=== PATIENT | male | born 1990 | race Caucasian/White ===

== ENCOUNTER 2016-10-30 13:49 | Inpatient (IN) | payer OTHER ==
[~2016-10-30] VITALS: Ht 180.3 cm; Wt 68.0 kg
[2016-10-30 13:53] VITALS: BP 166/95; PULSE 80; RESP 20; O2SAT 100
--- NOTE | 2016-10-30 14:03 | PD ---
Physical Exam Date Seen by Provider: Oct 30, 2016 Time Seen by Provider: 14:08 Data Data Last Documented VS Vital Signs Date Time Temp Pulse Resp B/P Pulse Ox O2 Delivery O2 Flow Rate FiO2 10/30/16 13:53 80 20 166/95 100 Room Air MDM Supervised Visit with EDER: No Narrative Course 26 YO M with complaint of worsening frontal headache, radiating down neck x 1 day. + photophobia, diminished hearing. Dx'd "blood clot in brain in [place] last week." ON WARFARIN. Vitals reviewed. Awaiting bed placement. Kathy Griffith Oct 30, 2016 14:03
--- NOTE | 2016-10-30 14:23 | PD ---
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 Patient was initially seen and evaluated at [facility]. He was visited by neurology via telemedicine and started on Coumadin. Patient states since discharge he has had a frontal pressure/headache but it has become significantly worse wrapping around the right side. Rates the pain an 8 out of 10 with significant photophobia. Denies any fever or chills. He has been nauseous with an episode of vomiting. Denies any focal deficits or weakness. States that he feels as though his gait starts off unsteady but he is able to maintain a steady gait following initiation of walking. Has been taking doxycycline as prescribed from [facility]. Denies any new injury. Denies any other symptoms at this time. PFSH Past Medical History Hx Anticoagulant Therapy: Yes (Warfarin) Cardiovascular Problems: No Chemotherapy: No Cerebrovascular Accident: No Diabetes: No Respiratory: No Social History Tobacco Use: No Allergies-Medications (Allergen,Severity, Reaction): Coded Allergies: Ultram (Verified Allergy, Unknown, 10/30/16) Review of Systems Except as stated in HPI: all other systems reviewed are Neg Physical Exam Narrative GENERAL: Well-nourished male patient, sitting in the dark with lights off and sunglasses on, in no acute distress. SKIN: Focused skin assessment warm/dry. HEAD: Atraumatic. Normocephalic. EYES: Pupils equal and round. No scleral icterus. No injection or drainage. EOMI. PERRL ENT: No nasal bleeding or discharge. Mucous membranes pink and moist. NECK: Trachea midline. No JVD. CARDIOVASCULAR: Regular rate and rhythm. No murmur appreciated. RESPIRATORY: No accessory muscle use. Clear to auscultation. Breath sounds equal bilaterally. GASTROINTESTINAL: Abdomen soft, non-tender, nondistended. Hepatic and splenic margins not palpable. MUSCULOSKELETAL: No obvious deformities. No clubbing. No cyanosis. No edema. NEUROLOGICAL: Awake and alert. No obvious cranial nerve deficits. Motor grossly within normal limits. Normal speech. PSYCHIATRIC: Appropriate mood and affect; insight and judgment normal. Data Data Last Documented VS Vital Signs Date Time Temp Pulse Resp B/P Pulse Ox O2 Delivery O2 Flow Rate FiO2 10/30/16 18:00 84 16 142/79 98 Room Air Orders Iv Access Insert/Monitor (10/30/16 14:23) Complete Blood Count With Diff (10/30/16 14:23) Comprehensive Metabolic Panel (10/30/16 14:23) Coag Profile (10/30/16 14:23) Sodium Chlor 0.9% 1000 Ml Inj (Ns 1000 M (10/30/16 14:30) Diphenhydramine Inj (Benadryl Inj) (10/30/16 14:30) Dexamethasone Inj (Decadron Inj) (10/30/16 14:30) Ct Brain W/O Iv Contrast(Rout) (10/30/16 ) Cta Brain W Iv Contrast W 3d (10/30/16 ) Cta Neck W Iv Contrast W 3d (10/30/16 ) Iohexol 350 Inj (Omnipaque 350 Inj) (10/30/16 16:15) Sumatriptan Inj (Imitrex Inj) (10/30/16 17:45) Morphine Inj (Morphine Inj) (10/30/16 18:00) Enoxaparin Inj (Lovenox Inj) (10/30/16 18:00) Diphenhydramine Inj (Benadryl Inj) (10/30/16 19:45) Admit Order (Ed Use Only) (10/30/16 20:06) Labs Laboratory Tests Test 10/30/16 14:44 White Blood Count 15.7 TH/MM3 Red Blood Count 4.93 MIL/MM3 Hemoglobin 14.5 GM/DL Hematocrit 42.0 % Mean Corpuscular Volume 85.2 FL Mean Corpuscular Hemoglobin 29.4 PG Mean Corpuscular Hemoglobin 34.5 % Concent Red Cell Distribution Width 13.1 % Platelet Count 323 TH/MM3 Mean Platelet Volume 8.7 FL Neutrophils (%) (Auto) 78.2 % Lymphocytes (%) (Auto) 15.9 % Monocytes (%) (Auto) 5.6 % Eosinophils (%) (Auto) 0.1 % Basophils (%) (Auto) 0.2 % Neutrophils # (Auto) 12.3 TH/MM3 Lymphocytes # (Auto) 2.5 TH/MM3 Monocytes # (Auto) 0.9 TH/MM3 Eosinophils # (Auto) 0.0 TH/MM3 Basophils # (Auto) 0.0 TH/MM3 CBC Comment DIFF FINAL Differential Comment Prothrombin Time 14.4 SEC Prothromb Time International 1.3 RATIO Ratio Activated Partial 27.7 SEC Thromboplast Time Sodium Level 137 MEQ/L Potassium Level 4.1 MEQ/L Chloride Level 101 MEQ/L Carbon Dioxide Level 29.6 MEQ/L Anion Gap 6 MEQ/L Blood Urea Nitrogen 16 MG/DL Creatinine 0.62 MG/DL Estimat Glomerular Filtration 154 ML/MIN Rate Random Glucose 108 MG/DL Calcium Level 8.8 MG/DL Total Bilirubin 0.3 MG/DL Aspartate Amino Transf 63 U/L (AST/SGOT) Alanine Aminotransferase 183 U/L (ALT/SGPT) Alkaline Phosphatase 104 U/L Total Protein 7.0 GM/DL Albumin 3.6 GM/DL [facility] Medical Decision Making Medical Screen Exam Complete: Yes Emergency Medical Condition: Yes Medical Record Reviewed: Yes Differential Diagnosis Migraine headache versus status migrainosus versus venous sinus thrombosis versus intracranial hemorrhage Narrative Course 26-year-old male presents to the emergency department for evaluation of intractable headache, worsening and now banding around to the right side of his head following a diagnosis of dural venous sinus thrombosis. Patient appears without distress. Neuro exam is nonfocal. He does have significant photophobia. Records are obtained from [facility]. Patient was discharged on Coumadin with a therapeutic INR of 2.8. Laboratory Tests Test 10/30/16 14:44 White Blood Count 15.7 TH/MM3 Red Blood Count 4.93 MIL/MM3 Hemoglobin 14.5 GM/DL Hematocrit 42.0 % Mean Corpuscular Volume 85.2 FL Mean Corpuscular Hemoglobin 29.4 PG Mean Corpuscular Hemoglobin 34.5 % Concent Red Cell Distribution Width 13.1 % Platelet Count 323 TH/MM3 Mean Platelet Volume 8.7 FL Neutrophils (%) (Auto) 78.2 % Lymphocytes (%) (Auto) 15.9 % Monocytes (%) (Auto) 5.6 % Eosinophils (%) (Auto) 0.1 % Basophils (%) (Auto) 0.2 % Neutrophils # (Auto) 12.3 TH/MM3 Lymphocytes # (Auto) 2.5 TH/MM3 Monocytes # (Auto) 0.9 TH/MM3 Eosinophils # (Auto) 0.0 TH/MM3 Basophils # (Auto) 0.0 TH/MM3 CBC Comment DIFF FINAL Differential Comment Prothrombin Time 14.4 SEC Prothromb Time International 1.3 RATIO Ratio Activated Partial 27.7 SEC Thromboplast Time Sodium Level 137 MEQ/L Potassium Level 4.1 MEQ/L Chloride Level 101 MEQ/L Carbon Dioxide Level 29.6 MEQ/L Anion Gap 6 MEQ/L Blood Urea Nitrogen 16 MG/DL Creatinine 0.62 MG/DL Estimat Glomerular Filtration 154 ML/MIN Rate Random Glucose 108 MG/DL Calcium Level 8.8 MG/DL Total Bilirubin 0.3 MG/DL Aspartate Amino Transf 63 U/L (AST/SGOT) Alanine Aminotransferase 183 U/L (ALT/SGPT) Alkaline Phosphatase 104 U/L Total Protein 7.0 GM/DL Albumin 3.6 GM/DL Last Impressions Neck CTA 10/30/16 0000 Signed Impressions: Service Date/Time: Sunday, October 30, 2016 16:01 - CONCLUSION: Normal examination. Timoteo Smith Jr., MD Head CTA 10/30/16 0000 Signed Impressions: Service Date/Time: Sunday, October 30, 2016 16:01 - CONCLUSION: Normal examination. Timoteo Smith Jr., MD Head CT 10/30/16 0000 Signed Impressions: Service Date/Time: Sunday, October 30, 2016 16:01 - CONCLUSION: Negative noncontrast CT brain. Timoteo Boone MD I discussed the CTA findings with Dr. Boone who states that CT is typically do not extend all the way to the frontal or superior areas of the brain. He does note some patchiness along the straight sinus and visualizes the transverse sinus more on the left than the right. He is able to fully visualize the vein of Nguyễn. The patient continues to be in pain. His INR is subtherapeutic at 1.3. I discussed the patient on my taking physician agrees he should be admitted for pain control and intervention to reach a therapeutic INR. He is given 90 mg subcutaneous Lovenox. Plan is discussed with the patient and his significant other at bedside. They are in agreement with this plan of care. [address] Delgado. Patient be admitted to his service. Diagnosis Primary Impression: Intractable headache Qualified Code: R51 - Intractable headache, unspecified chronicity pattern, unspecified headache type Additional Impressions: Subtherapeutic anticoagulation Hx of cerebral venous sinus thrombosis Admitting Information Admitting Physician Requests: Admit Condition: Stable So Kearns Oct 30, 2016 14:23
[2016-10-30] MEDS ORDERED: diphenhydrAMINE HCL 50 MG/ML VIAL IV PUSH ONE ×2 (14:30→19:45)
[2016-10-30] MEDS ORDERED: SODIUM CHLOR 0.9% 1000 ML INJ 1,000 ML IV ONE (14:30)
[2016-10-30] MEDS ORDERED: DEXAMETHASONE SOD PHOS 4 MG/ML VIAL IV PUSH ONE (14:30)
[2016-10-30 15:02] LABS: AUTOMATED NEUTROPHIL # 12.3 TH/MM3 (1.8-7.7); BASOPHIL % 0.2 % (0.0-2.0); EOSINOPHIL % 0.1 % (0.0-4.0); HEMO FLAGS DIFF FINAL; LYMPH % 15.9 % (9.0-44.0); LYMPHOCYTE # 2.5 TH/MM3 (1.0-4.8); MEAN CELL VOLUME 85.2 FL (80.0-100.0); MEAN CORPUSCULAR HEMOGLOBIN 29.4 PG (27.0-34.0); MEAN CORPUSCULAR HGB CONC 34.5 % (32.0-36.0); MONO % 5.6 % (0.0-8.0); NEUT % 78.2 % (16.0-70.0); PLATELET COUNT 323 TH/MM3 (150-450); RED BLOOD COUNT 4.93 MIL/MM3 (4.50-5.90); RED CELL DISTRIBUTION WIDTH 13.1 % (11.6-17.2); WHITE BLOOD COUNT 15.7 TH/MM3 (4.0-11.0)
[2016-10-30 15:19] LABS: APTT (PATIENT) 27.7 SEC (24.3-30.1); INTERNATIONAL NORMALIZED RATIO 1.3 RATIO; PROTHROMBIN TIME - PATIENT 14.4 SEC (9.8-11.6)
[2016-10-30 15:31] LABS: ALKALINE PHOSPHATASE 104 U/L (45-117); TOTAL BILIRUBIN ADULT 0.3 MG/DL (0.2-1.0)
[2016-10-30 15:38] LABS: ALT (GPT) 183 U/L (12-78); ANION GAP 6 MEQ/L (5-15); AST (GOT) 63 U/L (15-37); BICARBONATE 29.6 MEQ/L (21.0-32.0); BLOOD UREA NITROGEN 16 MG/DL (7-18); CHLORIDE 101 MEQ/L (98-107); GLOMERULAR FILTRATION RATE 154 ML/MIN (>89); POTASSIUM 4.1 MEQ/L (3.5-5.1); SODIUM (NA) 137 MEQ/L (136-145)
[2016-10-30 16:00] VITALS: BP 104/56; PULSE 97; RESP 16; O2SAT 98
[2016-10-30] MEDS ORDERED: IOHEXOL 350 MG/ML 10 ML VIAL (for RAD DIAG) IV ONE (16:15)
--- NOTE | 2016-10-30 17:30 | RADRPT ---
EXAM DATE/TIME: 10/30/2016 16:01 [facility] COMPARISON: No previous studies available for comparison. INDICATIONS : Cephalgia. RADIATION DOSE: 56.35 CTDIvol (mGy) MEDICAL HISTORY : brain clot SURGICAL HISTORY : None. ENCOUNTER: Initial ACUITY: 1 week PAIN SCALE: 7/10 LOCATION: Bilateral cranial TECHNIQUE: Multiple contiguous axial images were obtained of the head. Using automated exposure control and adj ustment of the mA and/or kV according to patient size, radiation dose was kept as low as reasonably a chievable to obtain optimal diagnostic quality images. FINDINGS: CEREBRUM: The ventricles are normal for age. No evidence of midline shift, mass lesion, hemorrhage or acute in farction. No extra-axial fluid collections are seen. POSTERIOR FOSSA: The cerebellum and brainstem are intact. The 4th ventricle is midline. The cerebellopontine angle i s unremarkable. EXTRACRANIAL: The visualized portion of the orbits is intact. SKULL: The calvaria is intact. No evidence of skull fracture. CONCLUSION: Negative noncontrast CT brain. Timoteo Boone MD on October 30, 2016 at 17:28 Board Certified Radiologist. This report was verified electronically.
[2016-10-30] MEDS ORDERED: SUMAtriptan INJ 6 MG/0.5 ML VIAL SQ ONE (17:45)
[2016-10-30 18:00] VITALS: BP 142/79; PULSE 84; RESP 16; O2SAT 98
[2016-10-30] MEDS ORDERED: ENOXAPARIN SODIUM 100 MG/ML SYRINGE SQ ONE (18:00)
[2016-10-30] MEDS ORDERED: MORPHINE SULFATE 4 MG/ML INJ IV PUSH ONE (18:00)
--- NOTE | 2016-10-30 19:46 | RADRPT ---
EXAM DATE/TIME: 10/30/2016 16:01 [facility] COMPARISON: No previous studies available for comparison. INDICATIONS : Cephalgia. IV CONTRAST: 100 cc Omnipaque 350 (iohexol) IV ; Cumulative dose for multiple exams. RADIATION DOSE: 5.00 CTDIvol (mGy) MEDICAL HISTORY : Brain clot. SURGICAL HISTORY : None. ENCOUNTER: Initial ACUITY: 1 day PAIN SCALE: 7/10 LOCATION: Bilateral cranial TECHNIQUE: Volumetric scanning was performed using a multi-row detector CT scanner. The data was post processed with a variety of visualization algorithms including full volume maximum intensity projection, multi -planar sliding thin slab reformation, curved planar reformation, and surface rendering techniques. Using automated exposure control and adjustment of the mA and/or kV according to patient size, radiat ion dose was kept as low as reasonably achievable to obtain optimal diagnostic quality images. FINDINGS: There is excellent visualization of the major intracranial arteries out to the second-order branch ve ssels. Variant anatomy with persistent circulation on the left. There is no evidence for aneury sm, vessel truncation or stenosis, and no evidence for vascular malformation. CONCLUSION: Normal examination. Timoteo Smith Jr., MD on October 30, 2016 at 19:42 Board Certified Radiologist. This report was verified electronically.
--- NOTE | 2016-10-30 19:48 | RADRPT ---
EXAM DATE/TIME: 10/30/2016 16:01 [facility] COMPARISON: No previous studies available for comparison. INDICATIONS : Cephalgia. IV CONTRAST: 100 cc Omnipaque 350 (iohexol) IV ; Cumulative dose for multiple exams. RADIATION DOSE: 5.00 CTDIvol (mGy) ; Combined studies MEDICAL HISTORY : Brain clot. SURGICAL HISTORY : None. ENCOUNTER: Initial ACUITY: 1 week PAIN SCALE: 7/10 LOCATION: Bilateral neck Elevated flow velocities and ICA/CCA ratios have been found to correlate with increased degrees of vessel stenosis, calculated as percentage of diameter relative to a normal segment of distal ICA/CCA. TECHNIQUE: Volumetric scanning was performed using a multirow detector CT scanner. The data was post processed with a variety of visualization algorithms including full-volume maximum intensity projection, multip lanar sliding thin-slab reformation, curved-planar reformation, and surface-rendering techniques. Us ing automated exposure control and adjustment of the mA and/or kV according to patient size, radiatio n dose was kept as low as reasonably achievable to obtain optimal diagnostic quality images. FINDINGS: AORTIC ARCH: There is a three-vessel origin of the great vessels from the aorta. No evidence of ostial narrowing. RIGHT CAROTID: The common carotid artery is intact. The carotid bulb has a normal configuration without ulceration o r narrowing. The internal carotid artery lumen is smooth without stenosis. The external carotid zac ry is intact. LEFT CAROTID: The common carotid artery is intact. The carotid bulb has a normal configuration without ulceration or narrowing. The internal carotid artery lumen is smooth without stenosis. The external carotid ar rachelle is intact. VERTEBRALS: The vertebral arteries have a symmetric diameter. No stenotic lesions are seen. CONCLUSION: Normal examination. Timoteo Smith Jr., MD on October 30, 2016 at 19:44 Board Certified Radiologist. This report was verified electronically.
--- NOTE | 2016-10-30 20:59 | HHI.HP ---
HPI Service [facility] Primary Care Physician Non-Staff Admission Diagnosis intractable ULLOA, subtherapeutic INR,hx of dural venous thrombosis Chief Complaint: h/a Travel History International Travel<30 Days: No Contact w/Intl Traveler <30 Da: No Traveled to Known Affected Are: No History of Present Illness Pt is 26 yo male who presented to [facility] and admitted from 10/22 -10/26. He was suffering from severe headache and photophobia. Pt had ct brain w/o contrast 10/22 and finding concerning for dural venous sinus thrombosis of straight sinus,inferior sagital sinus,torcular,right transverse sinues and possibly post sup. sagittal sinus. also right frontal sinusitis. MRI w/wo brain 10/23 negative for cva but mentions dural venous sinus thrombosis, straight,sinus,vein of hermann,right transverse sinus,right sup sigmoid sinus. MRV brain w/wo 10/23 dural venous sinus thrombosis with essentially complete occlusion of the straight sinus, vein of hermann,right transverse sinus, right sup sigmoid sinus. The inferior aspect of the right sigmoid sinus as well as the sup aspect of the right internal jugular vein were patent. Hypercoag panel included antiphospholipid ab's, KYLIE,RF,Hep B,C, spep unremarkable. Pt was sent home with therapeutic levels of coumadin but stated he still had some pain and pressure. he was given doxycycline in case of sinusitis. He has had more h/a and pressure worse over right scalp. photophobia and nausea/vomiting mentioned. In ED he is subtherapeutic on coumadin. he also complained of double vision. Review of Systems Other ulloa n/v double vision photophobia Past Family Social History Past Medical History extensive dural venous sinus thrombosis as above hx c.diff colitis hx sz after "ultram" insomnia Reported Medications coumadin 4mg daily doxycycline prn ambien Allergies: Coded Allergies: Ultram (Verified Allergy, Unknown, 10/30/16) Family History father with pad Social History rare etoh/tob Physical Exam Vital Signs light sensitive sitting in dark neck supple heart reg lung cta abd s/nt ext no edema no carotid bruit Vital Signs Date Time Temp Pulse Resp B/P Pulse Ox O2 Delivery O2 Flow Rate FiO2 10/30/16 18:00 84 16 142/79 98 Room Air 10/30/16 16:00 97 16 104/56 98 Room Air 10/30/16 13:53 80 20 166/95 100 Room Air Laboratory Laboratory Tests Test 10/30/16 14:44 White Blood Count 15.7 Red Blood Count 4.93 Hemoglobin 14.5 Hematocrit 42.0 Mean Corpuscular Volume 85.2 Mean Corpuscular Hemoglobin 29.4 Mean Corpuscular Hemoglobin 34.5 Concent Red Cell Distribution Width 13.1 Platelet Count 323 Mean Platelet Volume 8.7 Neutrophils (%) (Auto) 78.2 Lymphocytes (%) (Auto) 15.9 Monocytes (%) (Auto) 5.6 Eosinophils (%) (Auto) 0.1 Basophils (%) (Auto) 0.2 Neutrophils # (Auto) 12.3 Lymphocytes # (Auto) 2.5 Monocytes # (Auto) 0.9 Eosinophils # (Auto) 0.0 Basophils # (Auto) 0.0 CBC Comment DIFF FINAL Differential Comment Prothrombin Time 14.4 Prothromb Time International 1.3 Ratio Activated Partial 27.7 Thromboplast Time Sodium Level 137 Potassium Level 4.1 Chloride Level 101 Carbon Dioxide Level 29.6 Anion Gap 6 Blood Urea Nitrogen 16 Creatinine 0.62 Estimat Glomerular Filtration 154 Rate Random Glucose 108 Calcium Level 8.8 Total Bilirubin 0.3 Aspartate Amino Transf 63 (AST/SGOT) Alanine Aminotransferase 183 (ALT/SGPT) Alkaline Phosphatase 104 Total Protein 7.0 Albumin 3.6 Result Diagram: 10/30/16 1444 10/30/16 1444 Assessment and Plan Problem List: (1) Hx of cerebral venous sinus thrombosis Status: Acute Plan: Pt is 26 yo male who presented to [facility] and admitted from 10/22-10/26. He was suffering from severe headache and photophobia. Pt had ct brain w/o contrast 10/22 and finding concerning for dural venous sinus thrombosis of straight sinus,inferior sagital sinus,torcular,right transverse sinues and possibly post sup. sagittal sinus. also right frontal sinusitis. MRI w/wo brain 10/23 negative for cva but mentions dural venous sinus thrombosis, straight,sinus,vein of hermann,right transverse sinus,right sup sigmoid sinus. MRV brain w/wo 10/23 dural venous sinus thrombosis with essentially complete occlusion of the straight sinus, vein of hermann,right transverse sinus, right sup sigmoid sinus. The inferior aspect of the right sigmoid sinus as well as the sup aspect of the right internal jugular vein were patent. Hypercoag panel included antiphospholipid ab's, KYLIE,RF,Hep B,C, spep, homocysteine, unremarkable. Pt was sent home with therapeutic levels of coumadin but stated he still had some pain and pressure. he was given doxycycline in case of sinusitis. He has had more h/a and pressure worse over right scalp. photophobia and nausea/vomiting mentioned. In ED he is subtherapeutic on coumadin. he also complained of double vision. continue lovenox as started. consult neurology for opinion pain control hard to order complete hypercoag panel while on anticoagulation. But he is very subtherapeutic on coumadin. MRV (2) Intractable headache Status: Acute Plan: see above (3) Subtherapeutic anticoagulation Status: Acute Plan: see above Physician Certification 2 Midnight Certification Type: Admission for Inpatient Services Order for Inpatient Services 3The services are ordered in accordance with Medicare regulations or non- Medicare payer requirements, as applicable. In the case of services not specified as inpatient-only, they are appropriately provided as inpatient services in accordance with the 2-midnight benchmark. Estimated LOS (days): 3 3 days is the estimated time the patient will need to remain in the hospital, assuming treatment plan goals are met and no additional complications. Problem Qualifiers (1) Intractable headache: Qualified Code: R51 - Intractable headache, unspecified chronicity pattern, unspecified headache type Wilmer Delgado MD Oct 30, 2016 20:59
[2016-10-30] MEDS ORDERED: HYDROmorphone HCL PF 1 MG/ML VIAL IV PUSH ONE (21:00)
[2016-10-30] MEDS ORDERED: ONDANSETRON HCL 4 MG/2 ML VIAL IV PUSH PRN (21:00)
[2016-10-30 21:05] VITALS: BP 138/68; PULSE 72; RESP 18; O2SAT 98
[2016-10-30] MEDS ORDERED: GADODIAMIDE PF 287 MG/ML 20 ML VIAL (for RAD MRI) IV ONE (21:58)
[2016-10-30 22:27] VITALS: BP 143/81; PULSE 94; RESP 18; TEMP 96.6; O2SAT 97
--- NOTE | 2016-10-30 22:43 | RADRPT ---
EXAM DATE/TIME: 10/30/2016 21:52 COMPARISON: No previous studies available for comparison. INDICATIONS : Cephalgia. CONTRAST: 20 cc Omniscan (gadodiamide) IV MEDICAL HISTORY : None. SURGICAL HISTORY : None. ENCOUNTER: Initial ACUITY: 1 week PAIN SCORE: 9/10 LOCATION: cranial FINDINGS: MRV was performed using post contrast scanning technique. Flow is seen throughout the sagittal sinus . There is a thin amount of flow seen in the straight sinus and vein of Nguyễn. There is asymmetric flow in the transverse sinus, greater on the left than on the right. Symmetric appearance to the sig moid sinus.. CONCLUSION: Diminished flow seen in the straight sinus, but some flow is discernible. Asymmetric flow in the sag ittal sinus, diminished on the right. Timoteo Boone MD on October 30, 2016 at 22:39 Board Certified Radiologist. This report was verified electronically.
[2016-10-30] MEDS: ACETAMINOPHEN/HYDROcodone 325 MG/10 MG TAB PO PRN (22:54)
[2016-10-30] MEDS: ZOLPIDEM TARTRATE 10 MG TAB PO PRN (22:57)
[2016-10-31] VITALS: BP 128/69; PULSE 99; RESP 18; TEMP 96.6; O2SAT 98
[2016-10-31 04:00] VITALS: BP 134/71; PULSE 56; RESP 18; TEMP 96.5; O2SAT 98
[2016-10-31] MEDS: ACETAMINOPHEN/HYDROcodone 325 MG/10 MG TAB PO PRN (05:17)
[2016-10-31] MEDS: ENOXAPARIN SODIUM 100 MG/ML SYRINGE SQ SCH ×2 (05:17→18:34)
[2016-10-31 08:00] LABS: AUTOMATED NEUTROPHIL # 13.3 TH/MM3 (1.8-7.7); BASOPHIL % 0.2 % (0.0-2.0); EOSINOPHIL % 0.1 % (0.0-4.0); HEMATOCRIT 43.4 % (39.0-51.0); HEMO FLAGS DIFF FINAL; LYMPH % 18.2 % (9.0-44.0); LYMPHOCYTE # 3.3 TH/MM3 (1.0-4.8); MEAN CORPUSCULAR HEMOGLOBIN 28.6 PG (27.0-34.0); MEAN CORPUSCULAR HGB CONC 33.7 % (32.0-36.0); MONO % 7.3 % (0.0-8.0); NEUT % 74.2 % (16.0-70.0); PLATELET COUNT 323 TH/MM3 (150-450); RED BLOOD COUNT 5.11 MIL/MM3 (4.50-5.90); RED CELL DISTRIBUTION WIDTH 12.8 % (11.6-17.2); WHITE BLOOD COUNT 17.9 TH/MM3 (4.0-11.0)
[2016-10-31 08:13] VITALS: BP 139/69; PULSE 74; RESP 18; TEMP 97.8; O2SAT 98
[2016-10-31 08:22] LABS: TOTAL BILIRUBIN ADULT 0.5 MG/DL (0.2-1.0)
[2016-10-31 08:33] LABS: BICARBONATE 27.4 MEQ/L (21.0-32.0); INDIRECT BILIRUBIN 0.4 MG/DL (0.0-0.8); POTASSIUM 4.2 MEQ/L (3.5-5.1)
[2016-10-31] MEDS: HYDROmorphone HCL PF 1 MG/ML VIAL IV PUSH PRN ×5 (09:12→21:47)
--- NOTE | 2016-10-31 10:07 | HHI.PR ---
Subjective Remarks still has h/a and some double visions but dilaudid helps more. Objective Vitals heart reg lung cta abd s/nt ext no edema Vital Signs Date Time Temp Pulse Resp B/P Pulse Ox O2 Delivery O2 Flow Rate FiO2 10/31/16 08:13 97.8 74 18 139/69 98 10/31/16 04:00 96.5 56 18 134/71 98 10/31/16 00:00 96.6 99 18 128/69 98 10/30/16 22:27 96.6 94 18 143/81 97 10/30/16 21:05 72 18 138/68 98 Room Air 10/30/16 18:00 84 16 142/79 98 Room Air 10/30/16 16:00 97 16 104/56 98 Room Air 10/30/16 13:53 80 20 166/95 100 Room Air Result Diagram: 10/31/16 0741 10/31/16 0741 A/P Problem List: (1) Hx of cerebral venous sinus thrombosis Status: Acute Plan: Pt is 26 yo male who presented to [facility] and admitted from 10/22-10/26. He was suffering from severe headache and photophobia. Pt had ct brain w/o contrast 10/22 and finding concerning for dural venous sinus thrombosis of straight sinus,inferior sagital sinus,torcular,right transverse sinues and possibly post sup. sagittal sinus. also right frontal sinusitis. MRI w/wo brain 10/23 negative for cva but mentions dural venous sinus thrombosis, straight,sinus,vein of hermann,right transverse sinus,right sup sigmoid sinus. MRV brain w/wo 10/23 dural venous sinus thrombosis with essentially complete occlusion of the straight sinus, vein of hermann,right transverse sinus, right sup sigmoid sinus. The inferior aspect of the right sigmoid sinus as well as the sup aspect of the right internal jugular vein were patent. Hypercoag panel included antiphospholipid ab's, KYLIE,RF,Hep B,C, spep, homocysteine, unremarkable. Pt was sent home with therapeutic levels of coumadin but stated he still had some pain and pressure. he was given doxycycline in case of sinusitis. He has had more h/a and pressure worse over right scalp. photophobia and nausea/vomiting mentioned. In ED he is subtherapeutic on coumadin. he also complained of double vision. 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 continue lovenox as started. I would call cp and see if he could get Eliquis at reasonable cost consult neurology for opinion. ?would ask neurology if diamox would be appropriate to start for ICH. unable to do LP with AC. I discussed it's use with our [employer] industrial education teacher and he said diamox would be safe...Also if sx's persist IR consult could be performed. pain control partial hypercoagulable w/up at [place] reviewed. more sent here but interpret cautiously as it some of it may be influenced by recent use of coumadin ...although levels were low on arrival recheck LFT..could be drug related.....repeat wbc could be steroid related. (2) Intractable headache Status: Acute Plan: see above (3) Subtherapeutic anticoagulation Status: Acute Plan: see above Problem Qualifiers (1) Intractable headache: Qualified Code: R51 - Intractable headache, unspecified chronicity pattern, unspecified headache type Wilmer Delgado MD Oct 31, 2016 10:07
[2016-10-31] MEDS: acetaZOLAMIDE 250 MG TAB PO SCH ×2 (10:54→21:46)
[2016-10-31 12:10] VITALS: BP 136/75; PULSE 77; RESP 18; TEMP 96.1; O2SAT 97
[2016-10-31 16:07] VITALS: BP 133/70; PULSE 72; RESP 19; TEMP 96.2; O2SAT 97
[2016-10-31 20:00] VITALS: BP 126/74; PULSE 68; RESP 18; TEMP 97.3; O2SAT 98
[2016-10-31] MEDS: ZOLPIDEM TARTRATE 10 MG TAB PO PRN (21:46)
[2016-11-01] VITALS: BP 124/72; PULSE 62; RESP 18; TEMP 97; O2SAT 98
[2016-11-01] MEDS: ACETAMINOPHEN/HYDROcodone 325 MG/10 MG TAB PO PRN ×2 (01:23→17:47)
[2016-11-01] MEDS: HYDROmorphone HCL PF 1 MG/ML VIAL IV PUSH PRN ×6 (01:28→23:56)
[2016-11-01 04:00] VITALS: BP 115/66; PULSE 68; RESP 18; TEMP 97; O2SAT 98
[2016-11-01] MEDS: ENOXAPARIN SODIUM 100 MG/ML SYRINGE SQ SCH ×2 (05:05→17:47)
--- NOTE | 2016-11-01 06:15 | MB ---
cc: SAUNDRA KOCH DATE OF CONSULTATION 10/31/2016 REASON FOR CONSULTATION Dural sinus thrombosis. HISTORY OF PRESENT ILLNESS Next Mr. West is a 26-year-old male who had presented to [facility] and was admitted because of headache and severe photophobia. The patient states that the headache was frontal; it is a new headache, sometime located on the right side but radiates to the back. It is occasionally associated with nausea, vomiting and dizziness "sometimes". The headache is usually exacerbated by head movement, described as, "excruciating ".The patient was admitted in the hospital and findings of the head CT scan were concerning for dural venous sinus thrombosis of the straight sinus, inferior sagittal and right transverse sinus and possibly posterior superior sagittal sinus. This was between 10/22-10/26/2016. MRI with and without contrast on 10/23 was negative for acute stroke but revealed dural venous sinus thrombosis in the straight sinus, vein of Nguyễn, right transverse sinus and right superior sigmoid sinus. MRV of the brain with and without contrast on revealed dural venous sinus thrombosis with essentially complete occlusion of the straight sinus, vein of Nguyễn, right transverse sinus, right superior sigmoid sinus. The inferior aspect of the right sigmoid sinus as well as the superior aspect of the right internal jugular vein were patent. Review of the medical records revealed hypercoagulable panel including antiphospholipid antibodies, KYLIE, rheumatoid factor, hepatis B and C, serum protein electrophoresis were unremarkable. The patient was started on heparin and then bridged to Coumadin but two days later while still taking the medication he felt that he is still having headache and pressure, so he reported this time to [facility] for further management. It was found that his INR was subtherapeutic at 1.3. REVIEW OF SYSTEMS The 12-point review of systems is negative except for what is stated in the HPI. PAST MEDICAL HISTORY 1. Extensive deep dural venous sinus thrombosis. 2. C-diff colitis. 3. Seizure after starting Ultram. 4. Insomnia. PAST SURGICAL HISTORY Noncontributory. MEDICATIONS 1. Coumadin 4 mg. 2. Doxycycline. 3. Ambien p.r.n. ALLERGIES ULTRAM. FAMILY HISTORY Father with peripheral artery disease. SOCIAL HISTORY Rarely uses ethanol alcohol and tobacco. Denies illicit drug abuse. PHYSICAL EXAMINATION GENERAL: Awake, alert, pleasant, good historian, in mild distress. Sits in a dimmed room because of photosensitivity with fiance at the bedside. HEENT: Atraumatic, normocephalic. Intact hearing and intact vision. NECK: Supple. Mild tenderness when moving the neck. No signs of meningeal irritation. CARDIOVASCULAR: Regular rate and rhythm. RESPIRATORY: Clear to auscultation. No wheezes. ABDOMEN: Soft, bowel distension. EXTREMITIES: No leg edema. No clubbing, no cyanosis. Moves all extremities equally. NEUROLOGIC: Awake, alert, oriented to time, person and place. No temporal tenderness. Cranial nerve examination is grossly intact from II-XII. Mild pain on moving the globes. No temporal tenderness. Turning head right and left , up and down aggravates the pain. Motor system examination 5/5, normal tone. No abnormal movement. Foeriq-vr-ogja, ainc-wd-drnc are intact bilateral. Sensation intact bilateral, symmetrical to light touch and temperature. PSYCHOLOGICAL: Normal mood and behavior. No hallucinations. LABORATORY DATA White blood cells 17.9, hemoglobin 14.6, platelet count 323. Sodium 138, potassium 4.8, anion gap 9, creatinine 0.56. AST 68, ALT 186, alkaline phosphatase 119. INR 1.3. IMAGING STUDIES - Head CTA is normal. - Head CT without contrast is normal. - MRV with and without contrast - Diminished flow seen in the straight sinus but some flow is discernible. Asymmetric flow in the sagittal sinus, diminished on the right. DIAGNOSTIC IMPRESSION 1. Dural venous sinus thrombosis. 2. Headache. 3. Elevated liver enzymes. 4. Leukocytosis. PLAN 1. Neuro checks q. 4 hours. 2. Enoxaparin injection 90 mg subcu q. 12 hours. 3. We will switch to oral anticoagulation before release from hospital 4. Monitor the headache quality. If there is increasing headache with encephalopathic features, may start on acetazolamide. 5. Given the patient is on anticoagulation, LP is not warranted at this time. 6. Follow up hypercoagulable workup. 7. Avoid overuse of opiate medications for concern of rebound headache. 8. Seizure prophylaxis given the patient's history of adverse reaction to Ultram , may indicate a low seizure threshold. 9. Keppra 500 mg twice daily as preventative therapy. 10. DVT prophylaxis. Thank you for the opportunity to participate in the care of your patient. Saundra Koch MD RGO/SSB /11:10 PM /5:41 AM [facility]ES HOSPITALHarinder
[2016-11-01 07:28] LABS: AUTOMATED NEUTROPHIL # 5.3 TH/MM3 (1.8-7.7); BASOPHIL % 0.3 % (0.0-2.0); EOSINOPHIL # 0.1 TH/MM3 (0-0.4); EOSINOPHIL % 0.6 % (0.0-4.0); HEMO FLAGS DIFF FINAL; LYMPH % 41.5 % (9.0-44.0); LYMPHOCYTE # 4.6 TH/MM3 (1.0-4.8); MEAN CELL VOLUME 87.5 FL (80.0-100.0); MEAN CORPUSCULAR HEMOGLOBIN 29.2 PG (27.0-34.0); MEAN CORPUSCULAR HGB CONC 33.3 % (32.0-36.0); MONO % 9.6 % (0.0-8.0); PLATELET COUNT 253 TH/MM3 (150-450); RED BLOOD COUNT 4.91 MIL/MM3 (4.50-5.90); RED CELL DISTRIBUTION WIDTH 13.1 % (11.6-17.2); WHITE BLOOD COUNT 11.1 TH/MM3 (4.0-11.0)
[2016-11-01 08:00] VITALS: BP 118/64; PULSE 91; RESP 18; TEMP 97.3; O2SAT 97
[2016-11-01 08:00] LABS: BICARBONATE 21.9 MEQ/L (21.0-32.0); INDIRECT BILIRUBIN 0.4 MG/DL (0.0-0.8); TOTAL BILIRUBIN ADULT 0.5 MG/DL (0.2-1.0)
[2016-11-01] MEDS: acetaZOLAMIDE 250 MG TAB PO SCH ×2 (08:44→21:01)
[2016-11-01 11:59] VITALS: BP 133/81; PULSE 76; RESP 16; TEMP 96.2; O2SAT 96
[2016-11-01] MEDS ORDERED: GABAPENTIN 300 MG CAP PO SCH (14:15)
--- NOTE | 2016-11-01 14:21 | HHI.PR ---
Subjective Remarks Pt continues with severe ULLOA requiring dilaudid. Pt had BM today. Objective Vitals Vital Signs Date Time Temp Pulse Resp B/P Pulse Ox O2 Delivery O2 Flow Rate FiO2 11/01/16 11:59 96.2 76 16 133/81 96 11/01/16 08:00 97.3 91 18 118/64 97 11/01/16 04:00 97.0 68 18 115/66 98 11/01/16 00:00 97.0 62 18 124/72 98 10/31/16 20:00 97.3 68 18 126/74 98 10/31/16 16:07 96.2 72 19 133/70 97 10/31/16 10/31/16 11/01/16 15:00 23:00 07:00 # Voids 1 Result Diagram: 11/01/16 0644 11/01/16 0644 Imaging Last Impressions Neck CTA 10/30/16 0000 Signed Impressions: Service Date/Time: Sunday, October 30, 2016 16:01 - CONCLUSION: Normal examination. Timoteo Smith Jr., MD Head/Brain Mag Res Venography 10/30/16 0000 Signed Impressions: Service Date/Time: Sunday, October 30, 2016 21:52 - CONCLUSION: Diminished flow seen in the straight sinus, but some flow is discernible. Asymmetric flow in the sagittal sinus, diminished on the right. Timoteo Boone MD Head CTA 10/30/16 0000 Signed Impressions: Service Date/Time: Sunday, October 30, 2016 16:01 - CONCLUSION: Normal examination. Timoteo Smith Jr., MD Head CT 10/30/16 0000 Signed Impressions: Service Date/Time: Sunday, October 30, 2016 16:01 - CONCLUSION: Negative noncontrast CT brain. Timoteo Boone MD Objective Remarks GENERAL: This is a well-nourished, well-developed patient, in no apparent distress. CARDIOVASCULAR: Regular rate and rhythm without murmurs, gallops, or rubs. RESPIRATORY: Clear to auscultation. Breath sounds equal bilaterally. No wheezes , rales, or rhonchi. GASTROINTESTINAL: Abdomen soft, non-tender, nondistended. Normal active bowel sounds MUSCULOSKELETAL: Extremities without clubbing, cyanosis, or edema. NEURO: Alert & Oriented x4 to person, place, time, situation. Moves all ext x4 A/P Problem List: (1) Hx of cerebral venous sinus thrombosis Status: Acute Plan: comgmt with Neurology - Pt is 26 yo male who presented to [facility] and admitted from -10/26. - He was suffering from severe headache and photophobia. - Pt had ct brain w/o contrast 10/22 and finding concerning for dural venous sinus thrombosis of straight sinus,inferior sagital sinus,torcular,right transverse sinues and possibly post sup. sagittal sinus. also right frontal sinusitis. - MRI w/wo brain 10/23 negative for cva but mentions dural venous sinus thrombosis, straight,sinus,vein of hermann,right transverse sinus,right sup sigmoid sinus. - MRV brain w/wo 10/23 dural venous sinus thrombosis with essentially complete occlusion of the straight sinus, vein of hermann,right transverse sinus, right sup sigmoid sinus. The inferior aspect of the right sigmoid sinus as well as the sup aspect of the right internal jugular vein were patent. - Hypercoag panel included antiphospholipid ab's, KYLIE,RF,Hep B,C, spep, homocysteine, unremarkable. Pt was sent home with therapeutic levels of coumadin but stated he still had some pain and pressure. he was given doxycycline in case of sinusitis. He has had more h/a and pressure worse over right scalp. photophobia and nausea/vomiting mentioned. In ED he is subtherapeutic on coumadin. he also complained of double vision. 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 - lovenox, will transition to eliquis - diamox - case d/w Neurosurgery, Dr. Bobo. He will consult - start Mannitol x 24 hours - trial of gabapentin 300mg TID --> pt declined. He took gabapentin in the past for knee pain (?) and did NOT like the way that it made him feel - keppra per Neurology - Unable to do LP with anticoagulation. partial hypercoagulable w/up at [facility] reviewed. more sent here but interpret cautiously as it some of it may be influenced by recent use of coumadin ...although levels were low on arrival (2) Intractable headache Status: Acute Plan: see above (3) Subtherapeutic anticoagulation Status: Acute Plan: see above (4) Elevated transaminase level Status: Acute Plan: - unclear etiology - consider drug related Problem Qualifiers (1) Intractable headache: Qualified Code: R51 - Intractable headache, unspecified chronicity pattern, unspecified headache type Narinder Nieves DO Nov 01, 2016 14:21
--- NOTE | 2016-11-01 14:36 | PD.CONS ---
[facility] Service Neurosuregry Consult Requested By Dr Nieves Reason for Consult Thrombosis of the sinus Primary Care Physician Non-Staff History of Present Illness This is 26 yo male who presented to [facility] and admittedwith severe headaches and photophobia. He had ct brain w/o contrast 10/22 and finding concerning for dural venous sinus thrombosis affecting the straight sinus,inferior sagital sinus, torcular,right transverse sinues and possibly superior saggital sinus. MRI brain 10/23 negative for stroke but showed dural venous sinus thrombosis. MRV brain on 10/23 showed dural venous sinus thrombosis with essentially complete occlusion of the straight sinus, vein of hermann,right transverse sinus, right sup sigmoid sinus. The inferior aspect of the right sigmoid sinus as well as the sup aspect of the right internal jugular vein were patent. He underwent an extensive hypercoagulable profile which included antiphospholipid ab's, KYLIE,RF,Hep B,C, spep unremarkable. He was subsequently discharged home with therapeutic levels of coumadin, but reports persistent headaches with pain and pressure. He was given doxycycline as well. He has admitted to hospital with severe headaches and pressure, getting worse, photophobia and nausea/vomiting mentioned. In ED he is subtherapeutic on coumadin. he also complained of double vision. Neurosurgical consultation was requested to assist in his management Review of Systems Constitutional: DENIES: Diaphoretic episodes, Fatigue, Fever, Weight gain, Weight loss, Chills, Dizziness, Change in appetite, Night Sweats Endocrine: DENIES: Heat/cold intolerance, Polydipsia, Polyuria, Polyphagia Eyes: COMPLAINS OF: Blurred vision, Diplopia, DENIES: Eye inflammation, Eye pain, Vision loss, Photosensitivity, Double Vision Ears, nose, mouth, throat: DENIES: Tinnitus, Hearing loss, Vertigo, Nasal discharge, Oral lesions, Throat pain, Hoarseness, Ear Pain, Running Nose, Epistaxis, Sinus Pain, Toothache, Odynophagia Respiratory: DENIES: Apneas, Cough, Snoring, Wheezing, Hemoptysis, Sputum production, Shortness of breath Cardiovascular: DENIES: Chest pain, Palpitations, Syncope, Dyspnea on Exertion , PND, Lower Extremity Edema, Orthopnea, Claudication Gastrointestinal: COMPLAINS OF: Nausea, Vomiting, DENIES: Abdominal pain, Black stools, Bloody stools, Constipation, Diarrhea, Difficulty Swallowing, Anorexia Genitourinary: DENIES: Sexual dysfunction, Urinary frequency, Urinary incontinence, Urgency, Hematuria, Dysuria, Nocturia, Penile Discharge, Testicular Pain, Testicular Swelling Musculoskeletal: DENIES: Joint pain, Muscle aches, Stiffness, Joint Swelling, Back pain, Neck pain Integumentary: DENIES: Abnormal pigmentation, Nail changes, Pruritus, Rash Hematologic/lymphatic: DENIES: Bruising, Lymphadenopathy Immunologic/allergic: DENIES: Eczema, Urticaria Neurologic: COMPLAINS OF: Headache, DENIES: Abnormal gait, Localized weakness , Paresthesias, Seizures, Speech Problems, Tremor, Poor Balance Psychiatric: DENIES: Anxiety, Confusion, Mood changes, Depression, Hallucinations, Agitation, Suicidal Ideation, Homicidal Ideation, Delusions Past Family Social History Allergies: Coded Allergies: Ultram (Verified Allergy, Unknown, 10/30/16) Past Medical History extensive dural venous sinus thrombosis as above hx c.diff colitis hx sz after "ultram" insomnia Reported Medications coumadin 4mg daily doxycycline prn ambien Active Ordered Medications Current Medications Sodium Chloride (NS 1000 ml Inj) 1,000 ml @ 999 mls/hr BOLUS ONCE IV Last administered on 10/30/16 14:42; Start 10/30/16 at 14:30; Stop 10/30/16 at 15:30; Status DC Diphenhydramine HCl (Benadryl Inj) 50 mg ONCE ONCE IV PUSH Last administered on 10/30/16 14:43; Start 10/30/16 at 14:30; Stop 10/30/16 at 14:31; Status DC Dexamethasone Sodium Phosphate (Decadron Inj) 8 mg ONCE ONCE IV PUSH Last administered on 10/30/16 14:43; Start 10/30/16 at 14:30; Stop 10/30/16 at 14:31; Status DC Iohexol (Omnipaque 350 Inj) 100 ml STK-MED ONCE IV Last administered on 16:15; Start 10/30/16 at 16:15; Stop 10/30/16 at 17:01; Status DC Sumatriptan Succinate (Imitrex Inj) 6 mg ONCE ONCE SQ Last administered on 10/30 18:13; Start 10/30/16 at 17:45; Stop 10/30/16 at 17:46; Status DC Morphine Sulfate (Morphine Inj) 4 mg ONCE ONCE IV PUSH Last administered on 18:13; Start 10/30/16 at 18:00; Stop 10/30/16 at 18:01; Status DC Enoxaparin Sodium (Lovenox Inj) 90 mg ONCE ONCE SQ Last administered on 18:13; Start 10/30/16 at 18:00; Stop 10/30/16 at 18:01; Status DC Diphenhydramine HCl (Benadryl Inj) 25 mg ONCE ONCE IV PUSH Last administered on 10/30/16 19:47; Start 10/30/16 at 19:45; Stop 10/30/16 at 19:46; Status DC Hydromorphone HCl (Dilaudid Pf Inj) 1 mg Q3H PRN IV PUSH pain 6-10 Last administered on 11/01/16 14:52; Start 10/30/16 at 21:00; Stop 11/01/16 at 17:21; Status DC Hydromorphone HCl (Dilaudid Pf Inj) 1 mg ONCE ONCE IV PUSH ; Start 10/30/16 at 21:00; Stop 10/30/16 at 21:08; Status DC Acetaminophen/ Hydrocodone Bitart ([place] 10-325 Mg) 1 tab Q4H PRN PO pain 6-10 Last administered on 11/02/16 13:36; Start 10/30/16 at 21:00; Stop 11/02/16 at 15: 48; Status DC Ondansetron HCl (Zofran Inj) 4 mg Q4HR PRN IV PUSH NAUSEA/VOMITING Last administered on 11/01/16 16:20; Start 10/30/16 at 21:00; Stop 11/06/16 at 16:14; Status DC Enoxaparin Sodium (Lovenox Inj) 90 mg Q12H SQ Last administered on 11/03/16 05: 53; Start 10/31/16 at 06:00; Stop 11/03/16 at 14:47; Status DC Zolpidem Tartrate (Ambien) 10 mg HS PRN PO insomnia Last administered on 20:58; Start 10/30/16 at 21:30; Stop 11/06/16 at 16:14; Status DC Gadodiamide (Omniscan Pf Inj) 20 ml STK-MED ONCE IV Last administered on 21:58; Start 10/30/16 at 21:58; Stop 10/30/16 at 21:59; Status DC Acetazolamide (Diamox) 250 mg Q12HR PO Last administered on 11/01/16 08:44; Start 10/31/16 at 10:15; Stop 11/01/16 at 17:20; Status DC Levetriacetam (Keppra) 500 mg Q12HR PO Last administered on 11/06/16 09:27; Start 11/01/16 at 14:00; Stop 11/06/16 at 16:14; Status DC Mannitol (Mannitol Inj) 12.5 gm Q8H IV Last administered on 11/02/16 06:22; Start 11/01/16 at 15:00; Stop 11/02/16 at 14:59; Status DC Gabapentin (Neurontin) 300 mg TID PO ; Start 11/01/16 at 14:15; Stop 11/01/16 at 15:58; Status DC Dexamethasone Sodium Phosphate (Decadron Inj) 4 mg Q8HR IV PUSH Last administered on 11/02/16 13:31; Start 11/01/16 at 17:00; Stop 11/02/16 at 16:59; Status DC Diphenhydramine HCl (Benadryl Inj) 25 mg Q6H PRN IV PUSH HEADACHE Last administered on 11/06/16 06:30; Start 11/01/16 at 16:45; Stop 11/06/16 at 16:14 ; Status DC Acetazolamide (Diamox) 250 mg ONCE ONCE PO Last administered on 11/01/16 17:47 ; Start 11/01/16 at 18:00; Stop 11/01/16 at 18:01; Status DC Acetazolamide (Diamox) 500 mg Q12HR PO Last administered on 11/06/16 09:23; Start 11/01/16 at 21:00; Stop 11/06/16 at 16:14; Status DC Hydromorphone HCl (Dilaudid Pf Inj) 1 mg Q8H PRN IV PUSH pain 5-10 Last administered on 11/02/16 16:00; Start 11/01/16 at 17:21; Stop 11/02/16 at 18:00; Status DC Acetaminophen/ Hydrocodone Bitart ([place] 10-325 Mg) 1 tab Q6H PRN PO pain 1-4 Last administered on 11/03/16 14:56; Start 11/02/16 at 19:00; Stop 11/03/16 at 15: 44; Status DC Apixaban (Eliquis) 5 mg BID PO Last administered on 11/04/16 09:12; Start at 21:00; Stop 11/04/16 at 15:40; Status DC Acetaminophen/ Hydrocodone Bitart ([place] 10-325 Mg) 1 tab Q4H PRN PO pain 1-10 Last administered on 11/06/16 13:17; Start 11/03/16 at 17:00; Stop 11/06/16 at 16:14; Status DC Apixaban (Eliquis) 10 mg BID PO Last administered on 11/06/16 09:23; Start 11/04/16 at 21:00; Stop 11/06/16 at 16:14; Status DC Docusate Sodium (Colace) 100 mg BID PO Last administered on 11/05/16 09:53; Start 11/04/16 at 21:00; Stop 11/06/16 at 16:14; Status DC Family History Review with an Noncontributory Social History Occasional smoking Location of alcohol use Denies illicit drug use Physical Exam Vital Signs Vital Signs Date Time Temp Pulse Resp B/P Pulse Ox O2 Delivery O2 Flow Rate FiO2 11/01/16 11:59 96.2 76 16 133/81 96 11/01/16 08:00 97.3 91 18 118/64 97 11/01/16 04:00 97.0 68 18 115/66 98 11/01/16 00:00 97.0 62 18 124/72 98 10/31/16 20:00 97.3 68 18 126/74 98 10/31/16 16:07 96.2 72 19 133/70 97 Physical Exam Mr. West is alert, awake and oriented to time, place and person. Speech is fluent. Follows commands well. Cranial nerve examination: pupils 7 mm equal, round, and reactive to light. Gross EOMs intact, exam limited as he kept closing his eyes with complaints of pain. Facial motor and sensory function are normal and symmetrical. Neck is soft and supple. Motor: moves all four extremities well and symmetrically Sensory examination is intact to light touch in both the upper and lower extremities, symmetrically. Cerebellar examination is intact to [id number] test Laboratory Laboratory Tests Test 11/01/16 06:44 White Blood Count 11.1 Red Blood Count 4.91 Hemoglobin 14.3 Hematocrit 43.0 Mean Corpuscular Volume 87.5 Mean Corpuscular Hemoglobin 29.2 Mean Corpuscular Hemoglobin 33.3 Concent Red Cell Distribution Width 13.1 Platelet Count 253 Mean Platelet Volume 8.8 Neutrophils (%) (Auto) 48.0 Lymphocytes (%) (Auto) 41.5 Monocytes (%) (Auto) 9.6 Eosinophils (%) (Auto) 0.6 Basophils (%) (Auto) 0.3 Neutrophils # (Auto) 5.3 Lymphocytes # (Auto) 4.6 Monocytes # (Auto) 1.1 Eosinophils # (Auto) 0.1 Basophils # (Auto) 0.0 CBC Comment DIFF FINAL Differential Comment Sodium Level 138 Potassium Level 4.0 Chloride Level 107 Carbon Dioxide Level 21.9 Anion Gap 9 Blood Urea Nitrogen 10 Creatinine 0.67 Estimat Glomerular Filtration 141 Rate Random Glucose 89 Calcium Level 8.7 Total Bilirubin 0.5 Direct Bilirubin 0.1 Indirect Bilirubin 0.4 Aspartate Amino Transf 102 (AST/SGOT) Alanine Aminotransferase 245 (ALT/SGPT) Alkaline Phosphatase 113 Total Protein 6.5 Albumin 3.2 Result Diagram: 11/01/16 0644 11/01/16 0644 Imaging Last Impressions Neck CTA 10/30/16 0000 Signed Impressions: Service Date/Time: Sunday, October 30, 2016 16:01 - CONCLUSION: Normal examination. Timoteo Smith Jr., MD Head/Brain Mag Res Venography 10/30/16 0000 Signed Impressions: Service Date/Time: Sunday, October 30, 2016 21:52 - CONCLUSION: Diminished flow seen in the straight sinus, but some flow is discernible. Asymmetric flow in the sagittal sinus, diminished on the right. Timoteo Boone MD Head CTA 10/30/16 0000 Signed Impressions: Service Date/Time: Sunday, October 30, 2016 16:01 - CONCLUSION: Normal examination. Timoteo Smith Jr., MD Head CT 10/30/16 0000 Signed Impressions: Service Date/Time: Sunday, October 30, 2016 16:01 - CONCLUSION: Negative noncontrast CT brain. Timoteo Boone MD Attending Statement Neuro checks in a serial fashion. Recommend nonoperative treatment. Heparin drip or Lovenox for anticoagulation For headaches my benefit by a small dose mannitol 12.5 gm every 8hrs X3, and gabapentin 300 mg PO TID, or diamox. Recommend hypercoagulable workup, consider hematology consultation PT and OT evaluation Nutrition. oral diet Renal. monitor closely urine output, BUN and creatinine Endocrine. Monitor serial Acu checks and SSI as needed in detail ID monitor for signs of infection Protonix for stress ulcer prophylaxis Hay hose and SCD's for DVT prophylaxis Isai Bobo MD Nov 01, 2016 14:36
[2016-11-01] MEDS: MANNITOL 12.5 GM/50 ML VIAL IV SCH ×2 (16:20→23:45)
[2016-11-01] MEDS: levETIRAcetam 500 MG TAB PO SCH ×2 (16:20→21:01)
[2016-11-01] MEDS: DEXAMETHASONE SOD PHOS 4 MG/ML VIAL IV PUSH SCH ×2 (16:27→21:01)
--- NOTE | 2016-11-01 16:38 | HHI.PR ---
Review/Management Diagnosis 1. Dural venous sinus thrombosis. 2. Headache. 3. Elevated liver enzymes. 4. Leukocytosis. Plan - Neuro checks q. 4 hours. - Enoxaparin injection 90 mg subcu q. 12 hours. - We will switch to oral anticoagulation before release from hospital - Monitor the headache quality. If there is increasing headache with encephalopathic features, may start on acetazolamide. - Given the patient is on anticoagulation, LP is not warranted at this time. - Follow results up hypercoagulable workup. - Avoid overuse of opiate medications for concern of [rebound headache]. - Decreased the frequency of Dilaudid from Q3h to Q8h - Decreased Arrey dose and frequency - Dexamethasone 4mg Q8h - Seizure prophylaxis given the patient's history of adverse reaction to Ultram , may indicate a low seizure threshold. - Keppra 500 mg twice daily as preventative therapy. - Benadryl 2 mg iv Q8h - DVT prophylaxis. Diagnosis/Plan: Subjective Subjective Comments Complains oh headache, he thinks it is as severe as it was initially when he was diagnosed photophobia, mild nausea no double vision patient is on frequent dose of Dilaudid Q3h, Arrey, Active Medications Current Medications Medications (Trade) Dose Ordered Sig/Mazin Route Start Time Stop Time Status Last Admin (Dilaudid Pf Inj) 1 mg Q3H PRN IV PUSH 10/30/16 21:00 11/01/16 14:52 (Arrey 10-325 Mg) 1 tab Q4H PRN PO 10/30/16 21:00 11/01/16 01:23 (Zofran Inj) 4 mg Q4HR PRN IV PUSH 10/30/16 21:00 11/01/16 16:20 (Lovenox Inj) 90 mg Q12H SQ 10/31/16 06:00 11/01/16 05:05 (Ambien) 10 mg HS PRN PO 10/30/16 21:30 10/31/16 21:46 (Diamox) 250 mg Q12HR PO 10/31/16 10:15 11/01/16 08:44 (Keppra) 500 mg Q12HR PO 11/01/16 14:00 11/01/16 16:20 (Mannitol Inj) 12.5 gm Q8H IV 11/01/16 15:00 11/02/16 14:59 11/01/16 16:20 (Decadron Inj) 4 mg Q8HR IV PUSH 11/01/16 17:00 11/02/16 16:59 11/01/16 16:27 Allergies Allergies Coded Allergies Ultram (Verified Allergy, Unknown, 10/30/16) Exam I&O / VS 10/31/16 10/31/16 11/01/16 15:00 23:00 07:00 # Voids 1 Vital Signs Date Time Temp Pulse Resp B/P Pulse Ox O2 Delivery O2 Flow Rate FiO2 11/01/16 11:59 96.2 76 16 133/81 96 11/01/16 08:00 97.3 91 18 118/64 97 11/01/16 04:00 97.0 68 18 115/66 98 11/01/16 00:00 97.0 62 18 124/72 98 10/31/16 20:00 97.3 68 18 126/74 98 General: Alert and Oriented, Moderate distress Eye: PERRL, Vision unchanged Respiratory: Lungs CTA, Non-labored respirations Cardiology: Normal rate, No murmur Neurologic: Alert, Oriented, Normal sensory, Normal motor, No focal defects, CN II-XII intact, Normal DTR's Psychiatric: Cooperative, Appropriate mood & affect Objective Radiology Results Last 72 hours Impressions Neck CTA 10/30/16 0000 Signed Impressions: Service Date/Time: Sunday, October 30, 2016 16:01 - CONCLUSION: Normal examination. Timoteo Smith Jr., MD Head/Brain Mag Res Venography 10/30/16 0000 Signed Impressions: Service Date/Time: Sunday, October 30, 2016 21:52 - CONCLUSION: Diminished flow seen in the straight sinus, but some flow is discernible. Asymmetric flow in the sagittal sinus, diminished on the right. Timoteo Boone MD Head CTA 10/30/16 0000 Signed Impressions: Service Date/Time: Sunday, October 30, 2016 16:01 - CONCLUSION: Normal examination. Timoteo Smith Jr., MD Head CT 10/30/16 0000 Signed Impressions: Service Date/Time: Sunday, October 30, 2016 16:01 - CONCLUSION: Negative noncontrast CT brain. Timoteo Boone MD Micro and Labs Laboratory Tests Test 11/01/16 06:44 White Blood Count 11.1 Red Blood Count 4.91 Hemoglobin 14.3 Hematocrit 43.0 Mean Corpuscular Volume 87.5 Mean Corpuscular Hemoglobin 29.2 Mean Corpuscular Hemoglobin 33.3 Concent Red Cell Distribution Width 13.1 Platelet Count 253 Mean Platelet Volume 8.8 Neutrophils (%) (Auto) 48.0 Lymphocytes (%) (Auto) 41.5 Monocytes (%) (Auto) 9.6 Eosinophils (%) (Auto) 0.6 Basophils (%) (Auto) 0.3 Neutrophils # (Auto) 5.3 Lymphocytes # (Auto) 4.6 Monocytes # (Auto) 1.1 Eosinophils # (Auto) 0.1 Basophils # (Auto) 0.0 CBC Comment DIFF FINAL Differential Comment Sodium Level 138 Potassium Level 4.0 Chloride Level 107 Carbon Dioxide Level 21.9 Anion Gap 9 Blood Urea Nitrogen 10 Creatinine 0.67 Estimat Glomerular Filtration 141 Rate Random Glucose 89 Calcium Level 8.7 Total Bilirubin 0.5 Direct Bilirubin 0.1 Indirect Bilirubin 0.4 Aspartate Amino Transf 102 (AST/SGOT) Alanine Aminotransferase 245 (ALT/SGPT) Alkaline Phosphatase 113 Total Protein 6.5 Albumin 3.2 Saundra Koch MD Nov 01, 2016 16:38
[2016-11-01 16:40] VITALS: BP 127/72; PULSE 66; RESP 16; TEMP 97.6; O2SAT 95
[2016-11-01] MEDS: diphenhydrAMINE HCL 50 MG/ML VIAL IV PUSH PRN (17:48)
[2016-11-01] MEDS ORDERED: acetaZOLAMIDE 250 MG TAB PO ONE (18:00)
[2016-11-01 21:06] VITALS: BP 130/76; PULSE 76; RESP 20; TEMP 97.6; O2SAT 97
[2016-11-01] MEDS: ZOLPIDEM TARTRATE 10 MG TAB PO PRN (21:09)
[2016-11-02 00:19] VITALS: BP 120/75; PULSE 88; RESP 19; TEMP 97.2; O2SAT 97
[2016-11-02] MEDS: diphenhydrAMINE HCL 50 MG/ML VIAL IV PUSH PRN ×4 (00:32→23:31)
[2016-11-02 04:20] VITALS: BP 129/75; PULSE 80; RESP 20; TEMP 97.4; O2SAT 98
[2016-11-02] MEDS: DEXAMETHASONE SOD PHOS 4 MG/ML VIAL IV PUSH SCH ×2 (05:07→13:31)
[2016-11-02] MEDS: ENOXAPARIN SODIUM 100 MG/ML SYRINGE SQ SCH ×2 (05:09→17:27)
[2016-11-02] MEDS: ACETAMINOPHEN/HYDROcodone 325 MG/10 MG TAB PO PRN ×4 (05:13→21:00)
[2016-11-02] MEDS: MANNITOL 12.5 GM/50 ML VIAL IV SCH (06:22)
[2016-11-02 08:04] VITALS: BP 128/75; PULSE 104; RESP 18; TEMP 96.9; O2SAT 98
[2016-11-02] MEDS: acetaZOLAMIDE 250 MG TAB PO SCH ×2 (08:12→20:55)
[2016-11-02] MEDS: levETIRAcetam 500 MG TAB PO SCH ×2 (08:12→20:55)
[2016-11-02] MEDS: HYDROmorphone HCL PF 1 MG/ML VIAL IV PUSH PRN ×2 (08:13→16:00)
[2016-11-02 09:08] LABS: AUTOMATED NEUTROPHIL # 14.2 TH/MM3 (1.8-7.7); BASOPHIL % 0.1 % (0.0-2.0); HEMATOCRIT 44.9 % (39.0-51.0); HEMO FLAGS DIFF FINAL; LYMPH % 6.2 % (9.0-44.0); MEAN CELL VOLUME 85.6 FL (80.0-100.0); MEAN CORPUSCULAR HEMOGLOBIN 29.6 PG (27.0-34.0); MEAN CORPUSCULAR HGB CONC 34.5 % (32.0-36.0); NEUT % 91.7 % (16.0-70.0); PLATELET COUNT 349 TH/MM3 (150-450); RED BLOOD COUNT 5.25 MIL/MM3 (4.50-5.90); RED CELL DISTRIBUTION WIDTH 13.1 % (11.6-17.2); WHITE BLOOD COUNT 15.5 TH/MM3 (4.0-11.0)
[2016-11-02 09:44] LABS: TOTAL BILIRUBIN ADULT 0.5 MG/DL (0.2-1.0)
[2016-11-02 09:46] LABS: INDIRECT BILIRUBIN 0.4 MG/DL (0.0-0.8)
[2016-11-02 11:44] VITALS: BP 129/71; PULSE 100; RESP 18; TEMP 97.6; O2SAT 97
--- NOTE | 2016-11-02 15:50 | HHI.PR ---
Subjective Remarks Pt agrees that his ULLOA is less intense today. Objective Vitals Vital Signs Date Time Temp Pulse Resp B/P Pulse Ox O2 Delivery O2 Flow Rate FiO2 11/02/16 15:26 11/02/16 11:44 97.6 100 18 129/71 97 11/02/16 08:04 96.9 104 18 128/75 98 11/02/16 04:20 97.4 80 20 129/75 98 11/02/16 00:19 97.2 88 19 120/75 97 11/01/16 21:06 97.6 76 20 130/76 97 11/01/16 16:40 97.6 66 16 127/72 95 11/01/16 11/01/16 11/02/16 15:00 23:00 07:00 Intake Total 240 ml Balance 240 ml Intake Oral 240 ml # Voids 4 4 1 # Bowel Movements 1 Result Diagram: 11/02/16 0801 11/01/16 0644 Imaging Last Impressions Neck CTA 10/30/16 0000 Signed Impressions: Service Date/Time: Sunday, October 30, 2016 16:01 - CONCLUSION: Normal examination. Timoteo Smith Jr., MD Head/Brain Mag Res Venography 10/30/16 0000 Signed Impressions: Service Date/Time: Sunday, October 30, 2016 21:52 - CONCLUSION: Diminished flow seen in the straight sinus, but some flow is discernible. Asymmetric flow in the sagittal sinus, diminished on the right. Timoteo Boone MD Head CTA 10/30/16 0000 Signed Impressions: Service Date/Time: Sunday, October 30, 2016 16:01 - CONCLUSION: Normal examination. Timoteo Smith Jr., MD Head CT 10/30/16 0000 Signed Impressions: Service Date/Time: Sunday, October 30, 2016 16:01 - CONCLUSION: Negative noncontrast CT brain. Timoteo Boone MD Objective Remarks GENERAL: This is a well-nourished, well-developed patient, in no apparent distress. CARDIOVASCULAR: Regular rate and rhythm without murmurs, gallops, or rubs. RESPIRATORY: Clear to auscultation. Breath sounds equal bilaterally. No wheezes , rales, or rhonchi. GASTROINTESTINAL: Abdomen soft, non-tender, nondistended. Normal active bowel sounds MUSCULOSKELETAL: Extremities without clubbing, cyanosis, or edema. NEURO: Alert & Oriented x4 to person, place, time, situation. Moves all ext x4 A/P Problem List: (1) Hx of cerebral venous sinus thrombosis Status: Acute Plan: comgmt with Neurology - Pt is 26 yo male who presented to [facility] and admitted from -10/26. - He was suffering from severe headache and photophobia. - comgmt with Neurology and Neurosurgery - Pt had ct brain w/o contrast 10/22 and finding concerning for dural venous sinus thrombosis of straight sinus,inferior sagital sinus,torcular,right transverse sinues and possibly post sup. sagittal sinus. also right frontal sinusitis. - MRI w/wo brain 10/23 negative for cva but mentions dural venous sinus thrombosis, straight,sinus,vein of hermann,right transverse sinus,right sup sigmoid sinus. - MRV brain w/wo 10/23 dural venous sinus thrombosis with essentially complete occlusion of the straight sinus, vein of hermann,right transverse sinus, right sup sigmoid sinus. The inferior aspect of the right sigmoid sinus as well as the sup aspect of the right internal jugular vein were patent. - Hypercoag panel included antiphospholipid ab's, KYLIE,RF,Hep B,C, spep, homocysteine, unremarkable. Pt was sent home with therapeutic levels of coumadin but stated he still had some pain and pressure. he was given doxycycline in case of sinusitis. He has had more h/a and pressure worse over right scalp. photophobia and nausea/vomiting mentioned. In ED he is subtherapeutic on coumadin. he also complained of double vision. 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 - lovenox, will transition to eliquis - diamox - Mannitol x 24 hours (completed 11/02/16) - trial of gabapentin 300mg TID --> refused - keppra per Neurology - Unable to do LP with anticoagulation. - dilaudid stopped - norco spaced to q6h prn - if pt remains stable, anticipate d/c in 1-2 days partial hypercoagulable w/up at [place] reviewed. more sent here but interpret cautiously as it some of it may be influenced by recent use of coumadin ...although levels were low on arrival (2) Intractable headache Status: Acute Plan: see above (3) Subtherapeutic anticoagulation Status: Acute Plan: see above (4) Elevated transaminase level Status: Acute Plan: - unclear etiology - consider drug related Problem Qualifiers (1) Intractable headache: Qualified Code: R51 - Intractable headache, unspecified chronicity pattern, unspecified headache type Narinder Nieves DO Nov 02, 2016 15:50
[2016-11-02 16:19] VITALS: BP_SYST 135; BP_SYST 99; BP_DIAS 74; BP_DIAS 76; PULSE 90; PULSE 95; RESP 20; TEMP 97; TEMP 98.3; O2SAT 97; O2SAT 98
--- NOTE | 2016-11-02 18:02 | HHI.PR ---
Review/Management Diagnosis 1. Dural venous sinus thrombosis. 2. Headache. 3. Elevated liver enzymes. 4. Leukocytosis. 5. Medication overuse headache Plan - Neuro checks q. 4 hours. - Enoxaparin injection 90 mg subcu q. 12 hours. - To switch to oral anticoagulation before release from hospital - Increased Acetazolamide to 500mg bid. - Avoid overuse of opiate medications for concern of [rebound headache]. - Decreased the frequency of Dilaudid from Q3h to Q8h, then discontinue - Decreased [place] dose and frequency - Dexamethasone 4mg Q8h - Seizure prophylaxis given the patient's history of adverse reaction to Ultram , may indicate a low seizure threshold. - Keppra 500 mg twice daily as preventative therapy. - Benadryl 2 mg iv Q8h - DVT prophylaxis. Diagnosis/Plan: Subjective Subjective Comments No acute events reported Complains of less headache, still double vision, no nausea Patient states that he generally feels better, however, concerned that he may have recurrence of pain after release from the hospital Active Medications Current Medications Medications (Trade) Dose Ordered Sig/Mazin Route Start Time Stop Time Status Last Admin (Zofran Inj) 4 mg Q4HR PRN IV PUSH 10/30/16 21:00 11/01/16 16:20 (Lovenox Inj) 90 mg Q12H SQ 10/31/16 06:00 11/02/16 17:27 (Ambien) 10 mg HS PRN PO 10/30/16 21:30 11/01/16 21:09 (Keppra) 500 mg Q12HR PO 11/01/16 14:00 11/02/16 08:12 (Benadryl Inj) 25 mg Q6H PRN IV PUSH 11/01/16 16:45 11/02/16 17:27 (Diamox) 500 mg Q12HR PO 11/01/16 21:00 11/02/16 08:12 ([place] 10-325 Mg) 1 tab Q6H PRN PO 11/02/16 19:00 Allergies Allergies Coded Allergies Ultram (Verified Allergy, Unknown, 10/30/16) Exam I&O / VS 11/01/16 11/01/16 11/02/16 15:00 23:00 07:00 Intake Total 240 ml Balance 240 ml Intake Oral 240 ml # Voids 4 4 1 # Bowel Movements 1 Vital Signs Date Time Temp Pulse Resp B/P Pulse Ox O2 Delivery O2 Flow Rate FiO2 11/02/16 16:19 97.0 95 20 135/76 97 11/02/16 15:26 11/02/16 11:44 97.6 100 18 129/71 97 11/02/16 08:04 96.9 104 18 128/75 98 11/02/16 04:20 97.4 80 20 129/75 98 11/02/16 00:19 97.2 88 19 120/75 97 11/01/16 21:06 97.6 76 20 130/76 97 General: Alert and Oriented, Mild distress Eye: PERRL, Vision unchanged Respiratory: Lungs CTA, Non-labored respirations Cardiology: Normal rate, No murmur Neurologic: Alert, Oriented, Normal sensory, Normal motor, No focal defects, CN II-XII intact, Normal DTR's Psychiatric: Cooperative, Appropriate mood & affect Objective Micro and Labs Laboratory Tests Test 11/02/16 08:01 White Blood Count 15.5 Red Blood Count 5.25 Hemoglobin 15.5 Hematocrit 44.9 Mean Corpuscular Volume 85.6 Mean Corpuscular Hemoglobin 29.6 Mean Corpuscular Hemoglobin 34.5 Concent Red Cell Distribution Width 13.1 Platelet Count 349 Mean Platelet Volume 9.1 Neutrophils (%) (Auto) 91.7 Lymphocytes (%) (Auto) 6.2 Monocytes (%) (Auto) 2.0 Eosinophils (%) (Auto) 0.0 Basophils (%) (Auto) 0.1 Neutrophils # (Auto) 14.2 Lymphocytes # (Auto) 1.0 Monocytes # (Auto) 0.3 Eosinophils # (Auto) 0.0 Basophils # (Auto) 0.0 CBC Comment DIFF FINAL Differential Comment Total Bilirubin 0.5 Direct Bilirubin 0.1 Indirect Bilirubin 0.4 Aspartate Amino Transf 103 (AST/SGOT) Alanine Aminotransferase 301 (ALT/SGPT) Alkaline Phosphatase 120 Total Protein 7.8 Albumin 3.6 Saundra Koch MD Nov 02, 2016 18:02 Saundra Koch MD Nov 02, 2016 18:02
[2016-11-02 20:25] VITALS: BP 125/67; PULSE 86; RESP 17; TEMP 97.9; O2SAT 97
[2016-11-02] MEDS: ZOLPIDEM TARTRATE 10 MG TAB PO PRN (20:55)
[2016-11-03 00:09] VITALS: BP 119/65; PULSE 84; RESP 16; TEMP 97.2; O2SAT 98
[2016-11-03] MEDS: ACETAMINOPHEN/HYDROcodone 325 MG/10 MG TAB PO PRN ×5 (03:08→22:29)
[2016-11-03 05:47] VITALS: BP 107/57; PULSE 74; RESP 16; TEMP 98; O2SAT 98
[2016-11-03] MEDS: ENOXAPARIN SODIUM 100 MG/ML SYRINGE SQ SCH (05:53)
[2016-11-03] MEDS: diphenhydrAMINE HCL 50 MG/ML VIAL IV PUSH PRN ×4 (06:51→23:50)
[2016-11-03 08:24] VITALS: BP 109/57; PULSE 80; RESP 20; TEMP 97.1; O2SAT 100
--- NOTE | 2016-11-03 08:52 | HHI.PR ---
Review/Management Diagnosis 1. Dural venous sinus thrombosis. 2. Headache. 3. Elevated liver enzymes. 4. Leukocytosis. 5. Medication overuse headache Plan - Neuro checks q. 4 hours. - Enoxaparin injection 90 mg subcu q. 12 hours. - Can switch to oral anticoagulation Warfarin or Eliquis - Continue Acetazolamide to 500mg bid. - Avoid overuse of opiate medications for concern of [rebound headache]. - D/C Dilaudid - Decreased [employer] dose and frequency - Seizure prophylaxis given the patient's history of adverse reaction to Ultram , may indicate a low seizure threshold. - Keppra 500 mg twice daily as preventative therapy. - Benadryl 2 mg iv Q8h - DVT prophylaxis. Diagnosis/Plan: Subjective Subjective Comments Complains of headache " it is a little bit more rough today", and double vision Headache mainly on the right side No nausea or vomiting Mild dizziness upon walking Active Medications Current Medications Medications (Trade) Dose Ordered Sig/Mazin Route Start Time Stop Time Status Last Admin (Zofran Inj) 4 mg Q4HR PRN IV PUSH 10/30/16 21:00 11/01/16 16:20 (Lovenox Inj) 90 mg Q12H SQ 10/31/16 06:00 11/03/16 05:53 (Ambien) 10 mg HS PRN PO 10/30/16 21:30 11/02/16 20:55 (Keppra) 500 mg Q12HR PO 11/01/16 14:00 11/02/16 20:55 (Benadryl Inj) 25 mg Q6H PRN IV PUSH 11/01/16 16:45 11/03/16 06:51 (Diamox) 500 mg Q12HR PO 11/01/16 21:00 11/02/16 20:55 ([employer] 10-325 Mg) 1 tab Q6H PRN PO 11/02/16 19:00 11/03/16 03:08 Allergies Allergies Coded Allergies Ultram (Verified Allergy, Unknown, 10/30/16) Exam I&O / VS 11/02/16 11/02/16 11/03/16 15:00 23:00 07:00 Intake Total 960 ml 240 ml 240 ml Balance 960 ml 240 ml 240 ml Intake Oral 960 ml 240 ml 240 ml IV Total 0 ml # Voids 6 2 # Bowel Movements 2 Vital Signs Date Time Temp Pulse Resp B/P Pulse Ox O2 Delivery O2 Flow Rate FiO2 11/03/16 08:24 97.1 80 20 109/57 100 11/03/16 05:47 98.0 74 16 107/57 98 11/03/16 00:09 97.2 84 16 119/65 98 11/02/16 20:25 97.9 86 17 125/67 97 11/02/16 16:19 97.0 95 20 135/76 97 11/02/16 15:26 11/02/16 11:44 97.6 100 18 129/71 97 General: Alert and Oriented, Mild distress Eye: PERRL, Vision unchanged Respiratory: Lungs CTA, Non-labored respirations Cardiology: Normal rate, No murmur Neurologic: Alert, Oriented, Normal sensory, Normal motor, No focal defects, CN II-XII intact, Normal DTR's Psychiatric: Cooperative, Appropriate mood & affect Saundra Koch MD Nov 03, 2016 08:52 Saundra Koch MD Nov 03, 2016 08:52
[2016-11-03] MEDS: acetaZOLAMIDE 250 MG TAB PO SCH ×2 (09:03→20:54)
[2016-11-03] MEDS: levETIRAcetam 500 MG TAB PO SCH ×2 (09:03→20:53)
[2016-11-03 12:03] VITALS: BP 126/71; PULSE 71; RESP 20; TEMP 97.6; O2SAT 100
--- NOTE | 2016-11-03 15:12 | HHI.PR ---
Subjective Remarks ULLOA worse today. Objective Vitals Vital Signs Date Time Temp Pulse Resp B/P Pulse Ox O2 Delivery O2 Flow Rate FiO2 11/03/16 12:03 97.6 71 20 126/71 100 11/03/16 08:24 97.1 80 20 109/57 100 11/03/16 05:47 98.0 74 16 107/57 98 11/03/16 00:09 97.2 84 16 119/65 98 11/02/16 20:25 97.9 86 17 125/67 97 11/02/16 16:19 97.0 95 20 135/76 97 11/02/16 15:26 11/02/16 11/02/16 11/03/16 15:00 23:00 07:00 Intake Total 960 ml 240 ml 240 ml Balance 960 ml 240 ml 240 ml Intake Oral 960 ml 240 ml 240 ml IV Total 0 ml # Voids 6 2 # Bowel Movements 2 Result Diagram: 11/02/16 0801 11/01/16 0644 Imaging Last Impressions Neck CTA 10/30/16 0000 Signed Impressions: Service Date/Time: Sunday, October 30, 2016 16:01 - CONCLUSION: Normal examination. Timoteo Smith Jr., MD Head/Brain Mag Res Venography 10/30/16 0000 Signed Impressions: Service Date/Time: Sunday, October 30, 2016 21:52 - CONCLUSION: Diminished flow seen in the straight sinus, but some flow is discernible. Asymmetric flow in the sagittal sinus, diminished on the right. Timoteo Boone MD Head CTA 10/30/16 0000 Signed Impressions: Service Date/Time: Sunday, October 30, 2016 16:01 - CONCLUSION: Normal examination. Timoteo Smith Jr., MD Head CT 10/30/16 0000 Signed Impressions: Service Date/Time: Sunday, October 30, 2016 16:01 - CONCLUSION: Negative noncontrast CT brain. Timoteo Boone MD Objective Remarks GENERAL: This is a well-nourished, well-developed patient, in no apparent distress. CARDIOVASCULAR: Regular rate and rhythm without murmurs, gallops, or rubs. RESPIRATORY: Clear to auscultation. Breath sounds equal bilaterally. No wheezes , rales, or rhonchi. GASTROINTESTINAL: Abdomen soft, non-tender, nondistended. Normal active bowel sounds MUSCULOSKELETAL: Extremities without clubbing, cyanosis, or edema. NEURO: Alert & Oriented x4 to person, place, time, situation. Moves all ext x4 A/P Problem List: (1) Hx of cerebral venous sinus thrombosis Status: Acute Plan: comgmt with Neurology - Pt is 26 yo male who presented to [facility] and admitted from -10/26. - He was suffering from severe headache and photophobia. - Pt had ct brain w/o contrast 10/22 and finding concerning for dural venous sinus thrombosis of straight sinus,inferior sagital sinus,torcular,right transverse sinues and possibly post sup. sagittal sinus. also right frontal sinusitis. - MRI w/wo brain 10/23 negative for cva but mentions dural venous sinus thrombosis, straight,sinus,vein of hermann,right transverse sinus,right sup sigmoid sinus. - MRV brain w/wo 10/23 dural venous sinus thrombosis with essentially complete occlusion of the straight sinus, vein of hermann,right transverse sinus, right sup sigmoid sinus. The inferior aspect of the right sigmoid sinus as well as the sup aspect of the right internal jugular vein were patent. - Hypercoag panel included antiphospholipid ab's, KYLIE,RF,Hep B,C, spep, homocysteine, unremarkable. Pt was sent home with therapeutic levels of coumadin but stated he still had some pain and pressure. he was given doxycycline in case of sinusitis. He has had more h/a and pressure worse over right scalp. photophobia and nausea/vomiting mentioned. In ED he is subtherapeutic on coumadin. he also complained of double vision. 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 - lovenox, will transition to eliquis - diamox increased to 500mg BID - case d/w Neurosurgery, Dr. Bobo. He will consult - Mannitol x 24 hours (completed) - trial of gabapentin 300mg TID --> pt declined. He took gabapentin in the past for knee pain (?) and did NOT like the way that it made him feel - keppra per Neurology - increase frequency of norco to q4h prn - case d/w Neurology (11/03/16), Dr. Koch - Pt denies any recent illicit drug use. Pt denies any IV drug use. Pt admits to h/o using "pills" but NOT for the last several years. - continue current treatment plan. - consider additional diuretic to decrease ICP if pt remains symptomatic. - Unable to do LP with anticoagulation. partial hypercoagulable w/up at [place] reviewed. more sent here but interpret cautiously as it some of it may be influenced by recent use of coumadin ...although levels were low on arrival (2) Intractable headache Status: Acute Plan: see above (3) Subtherapeutic anticoagulation Status: Acute Plan: see above (4) Elevated transaminase level Status: Acute Plan: - unclear etiology - consider drug related Problem Qualifiers (1) Intractable headache: Qualified Code: R51 - Intractable headache, unspecified chronicity pattern, unspecified headache type Narinder Nieves DO Nov 03, 2016 15:12
--- NOTE | 2016-11-03 15:28 | HHI.NSPN ---
(Genoveva Desir) Note Status Status: Progress Note (Genoveva Desir) Interval History Interval History 11/03: continues to complain of headaches, on anticoagulation. (Genoveva Desir) Labs, Micro, & Vital Signs Results Date Time Temp Pulse Resp B/P Pulse Ox O2 Delivery O2 Flow Rate FiO2 11/03/16 12:03 97.6 71 20 126/71 100 11/03/16 08:24 97.1 80 20 109/57 100 11/03/16 05:47 98.0 74 16 107/57 98 11/03/16 00:09 97.2 84 16 119/65 98 11/02/16 20:25 97.9 86 17 125/67 97 11/02/16 16:19 97.0 95 20 135/76 97 11/02/16 15:26 11/03/16 07:00 Intake Total 1440 ml Balance 1440 ml Constitutional Vital Signs Date Time Temp Pulse Resp B/P Pulse Ox O2 Delivery O2 Flow Rate FiO2 11/03/16 12:03 97.6 71 20 126/71 100 11/03/16 08:24 97.1 80 20 109/57 100 11/03/16 05:47 98.0 74 16 107/57 98 11/03/16 00:09 97.2 84 16 119/65 98 11/02/16 20:25 97.9 86 17 125/67 97 11/02/16 16:19 97.0 95 20 135/76 97 11/02/16 15:26 11/03/16 07:00 Intake Total 1440 ml Balance 1440 ml (Genoveva Desir) Review of Systems/Exam Exam Mr. West is alert, awake and oriented to time, place and person. Speech is fluent. Follows commands well. Cranial nerve examination: pupils 7 mm equal, round, and reactive to light. Gross EOMs intact, exam limited as he kept closing his eyes with complaints of pain. Facial motor and sensory function are normal and symmetrical. Neck is soft and supple. Motor: moves all four extremities well and symmetrically Sensory examination is intact to light touch in both the upper and lower extremities, symmetrically. Cerebellar examination is intact to [id number] test (Genoveva Desir) Medications Current Medications Current Medications Medications (Trade) Dose Ordered Sig/Mazin Route PRN Reason Start Time Stop Time Status Last Admin Dose Admin Ondansetron HCl (Zofran Inj) 4 mg Q4HR PRN IV PUSH NAUSEA/VOMITING 10/30/16 21:00 11/01/16 16:20 Zolpidem Tartrate (Ambien) 10 mg HS PRN PO insomnia 10/30/16 21:30 11/02/16 20:55 Levetriacetam (Keppra) 500 mg Q12HR PO 11/01/16 14:00 11/03/16 09:03 Diphenhydramine HCl (Benadryl Inj) 25 mg Q6H PRN IV PUSH HEADACHE 11/01/16 16:45 11/03/16 12:07 Acetazolamide (Diamox) 500 mg Q12HR PO 11/01/16 21:00 11/03/16 09:03 Acetaminophen/ Hydrocodone Bitart ([place] 10-325 Mg) 1 tab Q6H PRN PO pain 1-4 11/02/16 19:00 11/03/16 14:56 Apixaban (Eliquis) 5 mg BID PO 11/03/16 21:00 (Genoveva Desir) Medical Decision Making MDM Remarks 26 y/o male with venous sinus thrombosis (Genoveva Desir) Plan Plan Remarks cont nonsurgical management cont anticoagulation, lovenox to coumadin bridge cont symptomatic tx of ULLOA's Neurology following (Genoveva Desir) Attending Statement Continue Neuro checks every 4 hours. Continue Enoxaparin injection 90 mg SQ every 12 hours. Breach to oral anticoagulation Please try to avoid overuse of opiate medications Continue Dexamethasone 4mg Q8h Seizure prophylaxisKeppra 500 mg twice daily as preventative therapy. Nutrition. Oral diet Renal. monitor closely urine output, BUN and creatinine Endocrine. Monitor serial Acu checks and SSI as needed in detail ID monitor for signs of infection Protonix for stress ulcer prophylaxis Hay hose and SCD's for DVT prophylaxis The exam, history, and the medical decision-making described in the above note were completed with the assistance of the mid-level provider. I reviewed and agree with the findings presented. I attest that I had a [id number] encounter with the patient on the same day, and personally performed and documented my assessment and findings in the medical record. (Isai Bobo MD) Genoveva Desir Nov 03, 2016 15:28 Isai Bobo MD Nov 03, 2016 15:50
--- NOTE | 2016-11-03 15:49 | HHI.NSPN ---
Note Status Status: Progress Note Interval History Diagnosis THIS NOTE CORRESPONDS TO 11/02/16 DURING ROUNDS Venous sinus thrombosis Interval History THIS NOTE CORRESPONDS TO 11/02/16 DURING ROUNDS This is 26 yo male who presented to [facility] and admittedwith severe headaches and photophobia. He had ct brain w/o contrast 10/22 and finding concerning for dural venous sinus thrombosis affecting the straight sinus,inferior sagital sinus, torcular,right transverse sinues and possibly superior saggital sinus. MRI brain 10/23 negative for stroke but showed dural venous sinus thrombosis. MRV brain on 10/23 showed dural venous sinus thrombosis with essentially complete occlusion of the straight sinus, vein of hermann,right transverse sinus, right sup sigmoid sinus. The inferior aspect of the right sigmoid sinus as well as the sup aspect of the right internal jugular vein were patent. He underwent an extensive hypercoagulable profile which included antiphospholipid ab's, KYLIE,RF,Hep B,C, spep unremarkable. He was subsequently discharged home with therapeutic levels of coumadin, but reports persistent headaches with pain and pressure. He was given doxycycline as well. He has admitted to hospital with severe headaches and pressure, getting worse, photophobia and nausea/vomiting mentioned. In ED he is subtherapeutic on coumadin. he also complained of double vision. Neurosurgical consultation was requested to assist in his management 11/02/16. Reports persistent, severe headaches. No focal neurological deficits Labs, Micro, & Vital Signs Results Date Time Temp Pulse Resp B/P Pulse Ox O2 Delivery O2 Flow Rate FiO2 11/03/16 12:03 97.6 71 20 126/71 100 11/03/16 08:24 97.1 80 20 109/57 100 11/03/16 05:47 98.0 74 16 107/57 98 11/03/16 00:09 97.2 84 16 119/65 98 11/02/16 20:25 97.9 86 17 125/67 97 11/02/16 16:19 97.0 95 20 135/76 97 11/03/16 07:00 Intake Total 1440 ml Balance 1440 ml Constitutional Vital Signs Date Time Temp Pulse Resp B/P Pulse Ox O2 Delivery O2 Flow Rate FiO2 11/03/16 12:03 97.6 71 20 126/71 100 11/03/16 08:24 97.1 80 20 109/57 100 11/03/16 05:47 98.0 74 16 107/57 98 11/03/16 00:09 97.2 84 16 119/65 98 11/02/16 20:25 97.9 86 17 125/67 97 11/02/16 16:19 97.0 95 20 135/76 97 11/03/16 07:00 Intake Total 1440 ml Balance 1440 ml Review of Systems/Exam Exam THIS NOTE CORRESPONDS TO 11/02/16 DURING ROUNDS Mr. West is alert, awake and oriented to time, place and person. Speech is fluent. Follows commands well. Cranial nerve examination: pupils 7 mm equal, round, and reactive to light. Gross EOMs intact, exam limited as he kept closing his eyes with complaints of pain. Facial motor and sensory function are normal and symmetrical. Neck is soft and supple. Motor: moves all four extremities well and symmetrically Sensory examination is intact to light touch in both the upper and lower extremities, symmetrically. Cerebellar examination is intact to [id number] test Medications Current Medications THIS NOTE CORRESPONDS TO 11/02/16 DURING ROUNDS Current Medications Sodium Chloride (NS 1000 ml Inj) 1,000 ml @ 999 mls/hr BOLUS ONCE IV Last administered on 10/30/16 14:42; Start 10/30/16 at 14:30; Stop 10/30/16 at 15:30; Status DC Diphenhydramine HCl (Benadryl Inj) 50 mg ONCE ONCE IV PUSH Last administered on 10/30/16 14:43; Start 10/30/16 at 14:30; Stop 10/30/16 at 14:31; Status DC Dexamethasone Sodium Phosphate (Decadron Inj) 8 mg ONCE ONCE IV PUSH Last administered on 10/30/16 14:43; Start 10/30/16 at 14:30; Stop 10/30/16 at 14:31; Status DC Iohexol (Omnipaque 350 Inj) 100 ml STK-MED ONCE IV Last administered on 16:15; Start 10/30/16 at 16:15; Stop 10/30/16 at 17:01; Status DC Sumatriptan Succinate (Imitrex Inj) 6 mg ONCE ONCE SQ Last administered on 10/30 18:13; Start 10/30/16 at 17:45; Stop 10/30/16 at 17:46; Status DC Morphine Sulfate (Morphine Inj) 4 mg ONCE ONCE IV PUSH Last administered on 18:13; Start 10/30/16 at 18:00; Stop 10/30/16 at 18:01; Status DC Enoxaparin Sodium (Lovenox Inj) 90 mg ONCE ONCE SQ Last administered on 18:13; Start 10/30/16 at 18:00; Stop 10/30/16 at 18:01; Status DC Diphenhydramine HCl (Benadryl Inj) 25 mg ONCE ONCE IV PUSH Last administered on 10/30/16 19:47; Start 10/30/16 at 19:45; Stop 10/30/16 at 19:46; Status DC Hydromorphone HCl (Dilaudid Pf Inj) 1 mg Q3H PRN IV PUSH pain 6-10 Last administered on 11/01/16 14:52; Start 10/30/16 at 21:00; Stop 11/01/16 at 17:21; Status DC Hydromorphone HCl (Dilaudid Pf Inj) 1 mg ONCE ONCE IV PUSH ; Start 10/30/16 at 21:00; Stop 10/30/16 at 21:08; Status DC Acetaminophen/ Hydrocodone Bitart ([place] 10-325 Mg) 1 tab Q4H PRN PO pain 6-10 Last administered on 11/02/16 13:36; Start 10/30/16 at 21:00; Stop 11/02/16 at 15: 48; Status DC Ondansetron HCl (Zofran Inj) 4 mg Q4HR PRN IV PUSH NAUSEA/VOMITING Last administered on 11/01/16 16:20; Start 10/30/16 at 21:00 Enoxaparin Sodium (Lovenox Inj) 90 mg Q12H SQ Last administered on 11/03/16 05: 53; Start 10/31/16 at 06:00; Stop 11/03/16 at 14:47; Status DC Zolpidem Tartrate (Ambien) 10 mg HS PRN PO insomnia Last administered on 20:55; Start 10/30/16 at 21:30 Gadodiamide (Omniscan Pf Inj) 20 ml STK-MED ONCE IV Last administered on 21:58; Start 10/30/16 at 21:58; Stop 10/30/16 at 21:59; Status DC Acetazolamide (Diamox) 250 mg Q12HR PO Last administered on 11/01/16 08:44; Start 10/31/16 at 10:15; Stop 11/01/16 at 17:20; Status DC Levetriacetam (Keppra) 500 mg Q12HR PO Last administered on 11/03/16 09:03; Start 11/01/16 at 14:00 Mannitol (Mannitol Inj) 12.5 gm Q8H IV Last administered on 11/02/16 06:22; Start 11/01/16 at 15:00; Stop 11/02/16 at 14:59; Status DC Gabapentin (Neurontin) 300 mg TID PO ; Start 11/01/16 at 14:15; Stop 11/01/16 at 15:58; Status DC Dexamethasone Sodium Phosphate (Decadron Inj) 4 mg Q8HR IV PUSH Last administered on 11/02/16 13:31; Start 11/01/16 at 17:00; Stop 11/02/16 at 16:59; Status DC Diphenhydramine HCl (Benadryl Inj) 25 mg Q6H PRN IV PUSH HEADACHE Last administered on 11/03/16 12:07; Start 11/01/16 at 16:45 Acetazolamide (Diamox) 250 mg ONCE ONCE PO Last administered on 11/01/16 17:47 ; Start 11/01/16 at 18:00; Stop 11/01/16 at 18:01; Status DC Acetazolamide (Diamox) 500 mg Q12HR PO Last administered on 11/03/16 09:03; Start 11/01/16 at 21:00 Hydromorphone HCl (Dilaudid Pf Inj) 1 mg Q8H PRN IV PUSH pain 5-10 Last administered on 11/02/16 16:00; Start 11/01/16 at 17:21; Stop 11/02/16 at 18:00; Status DC Acetaminophen/ Hydrocodone Bitart ([place] 10-325 Mg) 1 tab Q6H PRN PO pain 1-4 Last administered on 11/03/16t 14:56; Start 11/02/16 at 19:00 Apixaban (Eliquis) 5 mg BID PO ; Start 11/03/16 at 21:00 Medical Decision Making MDM Remarks THIS NOTE CORRESPONDS TO 11/02/16 DURING ROUNDS Last Impressions Neck CTA 10/30/16 0000 Signed Impressions: Service Date/Time: Sunday, October 30, 2016 16:01 - CONCLUSION: Normal examination. Timoteo Smith Jr., MD Head/Brain Mag Res Venography 10/30/16 0000 Signed Impressions: Service Date/Time: Sunday, October 30, 2016 21:52 - CONCLUSION: Diminished flow seen in the straight sinus, but some flow is discernible. Asymmetric flow in the sagittal sinus, diminished on the right. Timoteo Boone MD Head CTA 10/30/16 0000 Signed Impressions: Service Date/Time: Sunday, October 30, 2016 16:01 - CONCLUSION: Normal examination. Timoteo Smith Jr., MD Head CT 10/30/16 0000 Signed Impressions: Service Date/Time: Sunday, October 30, 2016 16:01 - CONCLUSION: Negative noncontrast CT brain. Timoteo Boone MD Plan Plan Remarks THIS NOTE CORRESPONDS TO 11/02/16 DURING ROUNDS 1. Dural venous sinus thrombosis. 2. Severe Headaches. 3. Elevated liver enzymes. 4. Leukocytosis. 5. Medication overuse headache Attending Statement THIS NOTE CORRESPONDS TO 11/02/16 DURING ROUNDS Continue Neuro checks every 4 hours. Continue Enoxaparin injection 90 mg SQ every 12 hours. Breach to oral anticoagulation Please try to avoid overuse of opiate medications Continue Dexamethasone 4mg Q8h Seizure prophylaxisKeppra 500 mg twice daily as preventative therapy. Nutrition. Oral diet Renal. monitor closely urine output, BUN and creatinine Endocrine. Monitor serial Acu checks and SSI as needed in detail ID monitor for signs of infection Protonix for stress ulcer prophylaxis Hay hoscecelia and SCD's for DVT prophylaxis Isai Bobo MD Nov 03, 2016 15:49
[2016-11-03 16:41] VITALS: BP 139/80; PULSE 82; RESP 20; TEMP 97.2; O2SAT 100
--- NOTE | 2016-11-03 16:54 | RADRPT ---
EXAM DATE/TIME: 11/03/2016 15:52 [facility] COMPARISON: No previous studies available for comparison. INDICATIONS : Short of breath. MEDICAL HISTORY : sinus thrombus, high wbc count SURGICAL HISTORY : None. ENCOUNTER: Initial ACUITY: 4 - 6 days PAIN SCORE: 0/10 LOCATION: Bilateral chest FINDINGS: A single view of the chest demonstrates the lungs to be symmetrically aerated without evidence of mas s, infiltrate or effusion. The cardiomediastinal contours are unremarkable. Osseous structures are intact. CONCLUSION: 1. No acute cardiopulmonary findings. Xavi Walters MD on November 03, 2016 at 16:51 Board Certified Radiologist. This report was verified electronically.
[2016-11-03 20:00] VITALS: BP 142/73; PULSE 89; RESP 22; TEMP 96.9; O2SAT 98
[2016-11-03] MEDS: ZOLPIDEM TARTRATE 10 MG TAB PO PRN (20:53)
[2016-11-03] MEDS: APIXABAN 5 MG TABLET PO SCH (20:53)
[2016-11-04] VITALS: BP_SYST 111; BP_SYST 164; BP_DIAS 56; BP_DIAS 76; PULSE 67; PULSE 73; RESP 12; RESP 16; TEMP 98; TEMP 98.7; O2SAT 97
[2016-11-04 04:00] VITALS: BP_SYST 142; PULSE 74; RESP 40; TEMP 98.8; O2SAT 95
[2016-11-04] MEDS: ACETAMINOPHEN/HYDROcodone 325 MG/10 MG TAB PO PRN ×5 (05:05→21:16)
[2016-11-04 08:06] VITALS: BP 118/63; PULSE 82; RESP 20; TEMP 96.6; O2SAT 98
--- NOTE | 2016-11-04 08:37 | HHI.PR ---
Review/Management Diagnosis 1. Dural venous sinus thrombosis. 2. Headache. 3. Elevated liver enzymes. 4. Leukocytosis. 5. Medication overuse headache Plan - Neuro checks q. 4 hours. - Eliquis 5mg bid - Continue Acetazolamide to 500mg bid. - Avoid overuse of opiate medications for concern of [rebound headache]. - Decreased [place] dose and frequency - Seizure prophylaxis given the patient's history of adverse reaction to Ultram , may indicate a low seizure threshold. - Keppra 500 mg twice daily as preventative therapy. - Benadryl 2 mg po Q8h - Patient states that he started donating plasma before this happened, then he started having the headache and the thrombosis, need to find out if there is a correlation, hematology input is appreciated. - Neurologically stable, non - focal neurologic exam, can be released , and follow up as outpatient. Diagnosis/Plan: Subjective Subjective Comments No acute events reported Less headache No nausea Mild double vision Active Medications Current Medications Medications (Trade) Dose Ordered Sig/Mazin Route Start Time Stop Time Status Last Admin (Zofran Inj) 4 mg Q4HR PRN IV PUSH 10/30/16 21:00 11/01/16 16:20 (Ambien) 10 mg HS PRN PO 10/30/16 21:30 11/03/16 20:53 (Keppra) 500 mg Q12HR PO 11/01/16 14:00 11/03/16 20:53 (Benadryl Inj) 25 mg Q6H PRN IV PUSH 11/01/16 16:45 11/03/16 23:50 (Diamox) 500 mg Q12HR PO 11/01/16 21:00 11/03/16 20:54 (Eliquis) 5 mg BID PO 11/03/16 21:00 11/03/16 20:53 ([place] 10-325 Mg) 1 tab Q4H PRN PO 11/03/16 17:00 11/04/16 05:05 Allergies Allergies Coded Allergies Ultram (Verified Allergy, Unknown, 10/30/16) Exam I&O / VS 11/03/16 11/03/16 11/04/16 15:00 23:00 07:00 Intake Total 0 ml 360 ml 360 ml Balance 0 ml 360 ml 360 ml Intake Oral 360 ml 360 ml IV Total 0 ml # Voids 3 Vital Signs Date Time Temp Pulse Resp B/P Pulse Ox O2 Delivery O2 Flow Rate FiO2 11/04/16 08:06 96.6 82 20 118/63 98 11/04/16 04:00 98.8 74 40 142/ 95 11/04/16 00:00 98.7 67 16 111/56 97 11/03/16 20:00 96.9 89 22 142/73 98 11/03/16 16:41 97.2 82 20 139/80 100 11/03/16 15:53 11/03/16 12:03 97.6 71 20 126/71 100 General: Alert and Oriented, Mild distress Eye: PERRL, Vision unchanged Respiratory: Lungs CTA, Non-labored respirations Cardiology: Normal rate, No murmur Neurologic: Alert, Oriented, Normal sensory, Normal motor, No focal defects, CN II-XII intact, Normal DTR's Psychiatric: Cooperative, Appropriate mood & affect Saundra Koch MD Nov 04, 2016 08:36
[2016-11-04] MEDS: diphenhydrAMINE HCL 50 MG/ML VIAL IV PUSH PRN ×4 (09:12→23:50)
[2016-11-04] MEDS: acetaZOLAMIDE 250 MG TAB PO SCH ×2 (09:12→21:15)
[2016-11-04] MEDS: levETIRAcetam 500 MG TAB PO SCH ×2 (09:12→21:15)
[2016-11-04] MEDS: APIXABAN 5 MG TABLET PO SCH ×2 (09:12→21:16)
[2016-11-04 09:52] LABS: AUTOMATED NEUTROPHIL # 6.5 TH/MM3 (1.8-7.7); BASOPHIL % 0.4 % (0.0-2.0); EOSINOPHIL % 0.3 % (0.0-4.0); HEMATOCRIT 41.6 % (39.0-51.0); HEMO FLAGS DIFF FINAL; LYMPH % 30.2 % (9.0-44.0); LYMPHOCYTE # 3.4 TH/MM3 (1.0-4.8); MEAN CELL VOLUME 85.7 FL (80.0-100.0); MEAN CORPUSCULAR HEMOGLOBIN 28.7 PG (27.0-34.0); MEAN CORPUSCULAR HGB CONC 33.5 % (32.0-36.0); MONO % 10.6 % (0.0-8.0); NEUT % 58.5 % (16.0-70.0); PLATELET COUNT 281 TH/MM3 (150-450); RED BLOOD COUNT 4.85 MIL/MM3 (4.50-5.90); RED CELL DISTRIBUTION WIDTH 13.5 % (11.6-17.2); WHITE BLOOD COUNT 11.2 TH/MM3 (4.0-11.0)
[2016-11-04 10:09] LABS: INDIRECT BILIRUBIN 0.3 MG/DL (0.0-0.8); TOTAL BILIRUBIN ADULT 0.4 MG/DL (0.2-1.0)
[2016-11-04 11:56] VITALS: BP 135/89; PULSE 79; RESP 20; TEMP 96.7; O2SAT 99
[2016-11-04 15:53] VITALS: BP 117/72; PULSE 89; RESP 20; TEMP 97.9; O2SAT 98
--- NOTE | 2016-11-04 15:57 | HHI.PR ---
Subjective Remarks Pt c/o continued ULLOA. Objective Vitals Vital Signs Date Time Temp Pulse Resp B/P Pulse Ox O2 Delivery O2 Flow Rate FiO2 11/04/16 11:56 96.7 79 20 135/89 99 11/04/16 08:06 96.6 82 20 118/63 98 11/04/16 04:00 98.8 74 40 142/ 95 11/04/16 00:00 98.7 67 16 111/56 97 11/03/16 20:00 96.9 89 22 142/73 98 11/03/16 16:41 97.2 82 20 139/80 100 11/03/16 15:53 11/03/16 11/03/16 11/04/16 15:00 23:00 07:00 Intake Total 0 ml 360 ml 360 ml Balance 0 ml 360 ml 360 ml Intake Oral 360 ml 360 ml IV Total 0 ml # Voids 3 Result Diagram: 11/04/16 0922 11/01/16 0644 Imaging Last Impressions Neck CTA 10/30/16 0000 Signed Impressions: Service Date/Time: Sunday, October 30, 2016 16:01 - CONCLUSION: Normal examination. Timoteo Smith Jr., MD Head/Brain Mag Res Venography 10/30/16 0000 Signed Impressions: Service Date/Time: Sunday, October 30, 2016 21:52 - CONCLUSION: Diminished flow seen in the straight sinus, but some flow is discernible. Asymmetric flow in the sagittal sinus, diminished on the right. Timoteo Boone MD Head CTA 10/30/16 0000 Signed Impressions: Service Date/Time: Sunday, October 30, 2016 16:01 - CONCLUSION: Normal examination. Timoteo Smith Jr., MD Head CT 10/30/16 0000 Signed Impressions: Service Date/Time: Sunday, October 30, 2016 16:01 - CONCLUSION: Negative noncontrast CT brain. Timoteo Boone MD Objective Remarks GENERAL: This is a well-nourished, well-developed patient, in no apparent distress. CARDIOVASCULAR: Regular rate and rhythm without murmurs, gallops, or rubs. RESPIRATORY: Clear to auscultation. Breath sounds equal bilaterally. No wheezes , rales, or rhonchi. GASTROINTESTINAL: Abdomen soft, non-tender, nondistended. Normal active bowel sounds MUSCULOSKELETAL: Extremities without clubbing, cyanosis, or edema. NEURO: Alert & Oriented x4 to person, place, time, situation. Moves all ext x4 A/P Problem List: (1) Hx of cerebral venous sinus thrombosis Status: Acute Plan: comgmt with Neurology - Pt is 26 yo male who presented to [facility] and admitted from -10/26. - He was suffering from severe headache and photophobia. - Pt had ct brain w/o contrast 10/22 and finding concerning for dural venous sinus thrombosis of straight sinus,inferior sagital sinus,torcular,right transverse sinues and possibly post sup. sagittal sinus. also right frontal sinusitis. - MRI w/wo brain 10/23 negative for cva but mentions dural venous sinus thrombosis, straight,sinus,vein of hermann,right transverse sinus,right sup sigmoid sinus. - MRV brain w/wo 10/23 dural venous sinus thrombosis with essentially complete occlusion of the straight sinus, vein of hermann,right transverse sinus, right sup sigmoid sinus. The inferior aspect of the right sigmoid sinus as well as the sup aspect of the right internal jugular vein were patent. - Hypercoag panel included antiphospholipid ab's, KYLIE,RF,Hep B,C, spep, homocysteine, unremarkable. Pt was sent home with therapeutic levels of coumadin but stated he still had some pain and pressure. he was given doxycycline in case of sinusitis. He has had more h/a and pressure worse over right scalp. photophobia and nausea/vomiting mentioned. In ED he is subtherapeutic on coumadin. he also complained of double vision. 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 - lovenox, will transition to eliquis 10mg BID - UpToDate recommends coumadin, but pt admitted to [place] with subtherapeutic coumadin, so I do NOT think coumadin will be a adequate option for anticoagulation - UpToDate recommends anticoagulation for 3 to 12 months - Pt feels that symptoms correlated with plasma donation. Case informally d/w Hematology. concurred that plasma donation may have theoretically contributed to pt's venous thrombosis by causing intravascular depletion and pt should NOT donate plasma in the future. - diamox increased to 500mg BID - Mannitol x 24 hours (completed) - trial of gabapentin 300mg TID --> pt declined. He took gabapentin in the past for knee pain (?) and did NOT like the way that it made him feel - keppra per Neurology - increase frequency of norco to q4h prn - case d/w Neurology (11/03/16), Dr. Koch - Pt denies any recent illicit drug use. Pt denies any IV drug use. Pt admits to h/o using "pills" but NOT for the last several years. - continue current treatment plan. - consider additional diuretic to decrease ICP if pt remains symptomatic. - Unable to do LP with anticoagulation. partial hypercoagulable w/up at [place] reviewed. more sent here but interpret cautiously as it some of it may be influenced by recent use of coumadin ...although levels were low on arrival (2) Intractable headache Status: Acute Plan: see above (3) Subtherapeutic anticoagulation Status: Acute Plan: see above (4) Elevated transaminase level Status: Acute Plan: - unclear etiology - consider drug related Problem Qualifiers (1) Intractable headache: Qualified Code: R51 - Intractable headache, unspecified chronicity pattern, unspecified headache type Narinder Nieves DO Nov 04, 2016 15:57
--- NOTE | 2016-11-04 16:20 | HHI.NSPN ---
(Genoveva Desir) Note Status Status: Progress Note (Genoveva Desir) Interval History Interval History 11/03: continues to complain of headaches, on anticoagulation. 11/04: feeling a bit better today (Genoveva Desir) Labs, Micro, & Vital Signs Results Date Time Temp Pulse Resp B/P Pulse Ox O2 Delivery O2 Flow Rate FiO2 11/04/16 15:53 97.9 89 20 117/72 98 11/04/16 11:56 96.7 79 20 135/89 99 11/04/16 08:06 96.6 82 20 118/63 98 11/04/16 04:00 98.8 74 40 142/ 95 11/04/16 00:00 98.7 67 16 111/56 97 11/03/16 20:00 96.9 89 22 142/73 98 11/03/16 16:41 97.2 82 20 139/80 100 11/04/16 07:00 Intake Total 720 ml Balance 720 ml Constitutional Vital Signs Date Time Temp Pulse Resp B/P Pulse Ox O2 Delivery O2 Flow Rate FiO2 11/04/16 15:53 97.9 89 20 117/72 98 11/04/16 11:56 96.7 79 20 135/89 99 11/04/16 08:06 96.6 82 20 118/63 98 11/04/16 04:00 98.8 74 40 142/ 95 11/04/16 00:00 98.7 67 16 111/56 97 11/03/16 20:00 96.9 89 22 142/73 98 11/03/16 16:41 97.2 82 20 139/80 100 11/04/16 07:00 Intake Total 720 ml Balance 720 ml (Genoveva Desir) Review of Systems/Exam Exam THIS NOTE CORRESPONDS TO 11/02/16 DURING ROUNDS Mr. West is alert, awake and oriented to time, place and person. Speech is fluent. Follows commands well. Cranial nerve examination: pupils 7 mm equal, round, and reactive to light. Gross EOMs intact, exam limited as he kept closing his eyes with complaints of pain. Facial motor and sensory function are normal and symmetrical. Neck is soft and supple. Motor: moves all four extremities well and symmetrically Sensory examination is intact to light touch in both the upper and lower extremities, symmetrically. Cerebellar examination is intact to [id number] test (Genoveva Desir) Medications Current Medications Current Medications Medications (Trade) Dose Ordered Sig/Mazin Route PRN Reason Start Time Stop Time Status Last Admin Dose Admin Ondansetron HCl (Zofran Inj) 4 mg Q4HR PRN IV PUSH NAUSEA/VOMITING 10/30/16 21:00 11/01/16 16:20 Zolpidem Tartrate (Ambien) 10 mg HS PRN PO insomnia 10/30/16 21:30 11/03/16 20:53 Levetriacetam (Keppra) 500 mg Q12HR PO 11/01/16 14:00 11/04/16 09:12 Diphenhydramine HCl (Benadryl Inj) 25 mg Q6H PRN IV PUSH HEADACHE 11/01/16 16:45 11/04/16 11:18 Acetazolamide (Diamox) 500 mg Q12HR PO 11/01/16 21:00 11/04/16 09:12 Acetaminophen/ Hydrocodone Bitart ([place] 10-325 Mg) 1 tab Q4H PRN PO pain 1-10 11/03/16 17:00 11/04/16 13:03 Apixaban (Eliquis) 10 mg BID PO 11/04/16 21:00 Docusate Sodium (Colace) 100 mg BID PO 11/04/16 21:00 (Genoveva Desir) Medical Decision Making MDM Remarks 26 y/o male with venous sinus thrombosis, headaches (Genoveva Desir) Plan Plan Remarks cont nonsurgical management cont anticoagulation, lovenox to coumadin bridge cont symptomatic tx of ULLOA's Neurology following (Genoveva Desir) Attending Statement The exam, history, and the medical decision-making described in the above note were completed with the assistance of the mid-level provider. I reviewed and agree with the findings presented. I attest that I had a [id number] encounter with the patient on the same day, and personally performed and documented my assessment and findings in the medical record. (Isai Bobo MD) Genoveva Desir Nov 04, 2016 16:20 Isai Bobo MD Nov 07, 2016 19:25
[2016-11-04 20:00] VITALS: BP 120/76; PULSE 75; RESP 18; TEMP 97.7; O2SAT 98
[2016-11-04] MEDS: ZOLPIDEM TARTRATE 10 MG TAB PO PRN (21:15)
[2016-11-04] MEDS: DOCUSATE SODIUM 100 MG CAP PO SCH (21:15)
[2016-11-05] VITALS: BP 122/76; PULSE 73; RESP 18; TEMP 97.4; O2SAT 98
[2016-11-05] MEDS: ACETAMINOPHEN/HYDROcodone 325 MG/10 MG TAB PO PRN ×6 (02:44→22:42)
[2016-11-05 04:00] VITALS: BP 101/55; PULSE 62; RESP 18; TEMP 96.4; O2SAT 97
[2016-11-05 08:01] VITALS: BP 125/67; PULSE 77; RESP 20; TEMP 96.7; O2SAT 98
[2016-11-05] MEDS: levETIRAcetam 500 MG TAB PO SCH ×2 (09:52→20:58)
[2016-11-05] MEDS: DOCUSATE SODIUM 100 MG CAP PO SCH ×2 (09:53→20:58)
[2016-11-05] MEDS: APIXABAN 5 MG TABLET PO SCH ×2 (09:53→20:59)
--- NOTE | 2016-11-05 09:57 | RADRPT ---
EXAM DATE/TIME: 11/05/2016 08:12 [facility] COMPARISON: No previous studies available for comparison. INDICATIONS : Increased lab values. MEDICAL HISTORY : Arthritis. Seizures. Migraines. Anticoagulant therapy, Warfarin. Gastritis. SURGICAL HISTORY : None. ENCOUNTER: Initial ACUITY: 2 days PAIN SCORE: 0/10 LOCATION: Bilateral upper quadrant MEASUREMENTS: LIVER: 18.3 cm length COMMON DUCT: 4 mm RIGHT KIDNEY: 13.5 x 5.0 x 5.1 cm LEFT KIDNEY: 13.7 x 5.4 x 6.0 cm SPLEEN: 12.4 cm length AORTA: 1.9cm maximal FINDINGS: LIVER: Normal echotexture without focal lesion or ductal dilatation. COMMON DUCT: No intraluminal mass or stone visualized. GALLBLADDER: Contains no stones, demonstrates no wall thickening or pericholecystic fluid. PANCREAS: The visualized portions are within normal limits. Only small portions of the pancreatic head are visu alized. The remaining portions are obscured by bowel gas. RIGHT KIDNEY: No hydronephrosis, stone or mass.A 3 cm hypoechoic focus without posterior enhancement consistent wit h a cyst within the midpole. LEFT KIDNEY: No hydronephrosis, stone or mass. A 12 mm simple cyst within the lower pole. SPLEEN: No focal lesion.Top normal in size. AORTA: Obscured by bowel gas. IVC: Obscured by bowel gas. CONCLUSION: 1. 3 cm nonspecific hypoechoic lesion involving the midpole the right kidney. CT scan of the kidneys with and without IV contrast suggested. Alternatively, MRI could be utilized. 2. Bowel gas limits the study. Timoteo Smith Jr., MD on November 05, 2016 at 9:45 Board Certified Radiologist. This report was verified electronically.
[2016-11-05] MEDS: acetaZOLAMIDE 250 MG TAB PO SCH ×2 (10:03→21:00)
[2016-11-05 12:06] VITALS: BP 146/77; PULSE 101; RESP 20; TEMP 96.7; O2SAT 99
[2016-11-05 15:59] VITALS: BP 140/84; PULSE 91; RESP 20; TEMP 97.1; O2SAT 99
--- NOTE | 2016-11-05 16:27 | HHI.PR ---
Subjective Remarks Pt c/o continued ULLOA. Pt requiring norco every 6 hours. Objective Vitals Vital Signs Date Time Temp Pulse Resp B/P Pulse Ox O2 Delivery O2 Flow Rate FiO2 11/05/16 15:59 97.1 91 20 140/84 99 11/05/16 12:06 96.7 101 20 146/77 99 11/05/16 08:01 96.7 77 20 125/67 98 11/05/16 04:00 96.4 62 18 101/55 97 11/05/16 00:00 97.4 73 18 122/76 98 11/04/16 20:00 97.7 75 18 120/76 98 11/04/16 11/04/16 11/05/16 15:00 23:00 07:00 Intake Total 620 ml 1010 ml 240 ml Balance 620 ml 1010 ml 240 ml Intake Oral 620 ml 1010 ml 240 ml # Voids 3 2 Result Diagram: 11/04/16 0922 11/01/16 0644 Imaging Last Impressions Neck CTA 10/30/16 0000 Signed Impressions: Service Date/Time: Sunday, October 30, 2016 16:01 - CONCLUSION: Normal examination. Timoteo Smith Jr., MD Head/Brain Mag Res Venography 10/30/16 0000 Signed Impressions: Service Date/Time: Sunday, October 30, 2016 21:52 - CONCLUSION: Diminished flow seen in the straight sinus, but some flow is discernible. Asymmetric flow in the sagittal sinus, diminished on the right. Timoteo Boone MD Head CTA 10/30/16 0000 Signed Impressions: Service Date/Time: Sunday, October 30, 2016 16:01 - CONCLUSION: Normal examination. Timoteo Smith Jr., MD Head CT 10/30/16 0000 Signed Impressions: Service Date/Time: Sunday, October 30, 2016 16:01 - CONCLUSION: Negative noncontrast CT brain. Timoteo Boone MD Objective Remarks GENERAL: This is a well-nourished, well-developed patient, in no apparent distress. CARDIOVASCULAR: Regular rate and rhythm without murmurs, gallops, or rubs. RESPIRATORY: Clear to auscultation. Breath sounds equal bilaterally. No wheezes , rales, or rhonchi. GASTROINTESTINAL: Abdomen soft, non-tender, nondistended. Normal active bowel sounds MUSCULOSKELETAL: Extremities without clubbing, cyanosis, or edema. NEURO: Alert & Oriented x4 to person, place, time, situation. Moves all ext x4 A/P Problem List: (1) Hx of cerebral venous sinus thrombosis Status: Acute Plan: comgmt with Neurology - Pt is 26 yo male who presented to [facility] and admitted from -10/26. - He was suffering from severe headache and photophobia. - Pt had ct brain w/o contrast 10/22 and finding concerning for dural venous sinus thrombosis of straight sinus,inferior sagital sinus,torcular,right transverse sinues and possibly post sup. sagittal sinus. also right frontal sinusitis. - MRI w/wo brain 10/23 negative for cva but mentions dural venous sinus thrombosis, straight,sinus,vein of hermann,right transverse sinus,right sup sigmoid sinus. - MRV brain w/wo 10/23 dural venous sinus thrombosis with essentially complete occlusion of the straight sinus, vein of hermann,right transverse sinus, right sup sigmoid sinus. The inferior aspect of the right sigmoid sinus as well as the sup aspect of the right internal jugular vein were patent. - Hypercoag panel included antiphospholipid ab's, KYLIE,RF,Hep B,C, spep, homocysteine, unremarkable. Pt was sent home with therapeutic levels of coumadin but stated he still had some pain and pressure. he was given doxycycline in case of sinusitis. He has had more h/a and pressure worse over right scalp. photophobia and nausea/vomiting mentioned. In ED he is subtherapeutic on coumadin. he also complained of double vision. 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 - lovenox, will transition to eliquis 10mg BID - UpToDate recommends coumadin, but pt admitted to [place] with subtherapeutic coumadin, so I do NOT think coumadin will be a adequate option for anticoagulation - UpToDate recommends anticoagulation for 3 to 12 months - Pt feels that symptoms correlated with plasma donation. Case informally d/w Hematology. concurred that plasma donation may have theoretically contributed to pt's venous thrombosis by causing intravascular depletion and pt should NOT donate plasma in the future. - diamox 500mg BID - Mannitol x 24 hours (completed) - trial of gabapentin 300mg TID --> pt declined. He took gabapentin in the past for knee pain (?) and did NOT like the way that it made him feel - keppra per Neurology - norco to q4h prn - case d/w Neurology (11/04/16), Dr. Koch. Dr. Koch agrees with discharge. - Pt denies any recent illicit drug use. Pt denies any IV drug use. Pt admits to h/o using "pills" but NOT for the last several years. - repeat labs in AM - if labs remain stable and pt clinically stable, anticipate d/c to home 11/06/16 - Unable to do LP with anticoagulation. partial hypercoagulable w/up at [place] reviewed. more sent here but interpret cautiously as it some of it may be influenced by recent use of coumadin ...although levels were low on arrival (2) Intractable headache Status: Acute Plan: see above (3) Subtherapeutic anticoagulation Status: Acute Plan: see above (4) Elevated transaminase level Status: Acute Plan: - unclear etiology - consider drug related Problem Qualifiers (1) Intractable headache: Qualified Code: R51 - Intractable headache, unspecified chronicity pattern, unspecified headache type Narinder Nieves DO Nov 05, 2016 16:27
--- NOTE | 2016-11-05 17:17 | HHI.PR ---
Review/Management Diagnosis 1. Dural venous sinus thrombosis. 2. Headache, resolving 3. Elevated liver enzymes. 4. Leukocytosis. 5. Medication overuse headache Plan - Neuro checks q. 4 hours. - Eliquis 10 mg bid - Continue Acetazolamide 500 mg bid. - Avoid overuse of opiate medications for concern of [rebound headache]. - [place] Q 4 h prn - Seizure prophylaxis given the patient's history of adverse reaction to Ultram , may indicate a low seizure threshold. - Keppra 500 mg twice daily as preventative therapy. - Benadryl 2 mg po Q8h - Patient states that he started donating plasma before this happened, then he started having the headache and the thrombosis, as per hematology there is a a correlation with venous thrombosis. - I discussed plan of care with Dr. Nieves - Neurologically stable, non - focal neurologic exam, can be released from the hospital , and follow up as outpatient. Diagnosis/Plan: Subjective Subjective Comments Patient feels well, states that his headache has become less intense Sleeps well, good appetite Very mild blurring, denies double image, mild pain on moving the eyes horizontally especially to the right side Active Medications Current Medications Medications (Trade) Dose Ordered Sig/Mazin Route Start Time Stop Time Status Last Admin (Zofran Inj) 4 mg Q4HR PRN IV PUSH 10/30/16 21:00 11/01/16 16:20 (Ambien) 10 mg HS PRN PO 10/30/16 21:30 11/04/16 21:15 (Keppra) 500 mg Q12HR PO 11/01/16 14:00 11/05/16 09:52 (Benadryl Inj) 25 mg Q6H PRN IV PUSH 11/01/16 16:45 11/04/16 23:50 (Diamox) 500 mg Q12HR PO 11/01/16 21:00 11/05/16 10:03 ([place] 10-325 Mg) 1 tab Q4H PRN PO 11/03/16 17:00 11/05/16 14:43 (Eliquis) 10 mg BID PO 11/04/16 21:00 11/05/16 09:53 (Colace) 100 mg BID PO 11/04/16 21:00 11/05/16 09:53 Allergies Allergies Coded Allergies Ultram (Verified Allergy, Unknown, 10/30/16) Exam I&O / VS 11/04/16 11/04/16 11/05/16 15:00 23:00 07:00 Intake Total 620 ml 1010 ml 240 ml Balance 620 ml 1010 ml 240 ml Intake Oral 620 ml 1010 ml 240 ml # Voids 3 2 Vital Signs Date Time Temp Pulse Resp B/P Pulse Ox O2 Delivery O2 Flow Rate FiO2 11/05/16 15:59 97.1 91 20 140/84 99 11/05/16 12:06 96.7 101 20 146/77 99 11/05/16 08:01 96.7 77 20 125/67 98 11/05/16 04:00 96.4 62 18 101/55 97 11/05/16 00:00 97.4 73 18 122/76 98 11/04/16 20:00 97.7 75 18 120/76 98 General: Alert and Oriented, Mild distress Eye: PERRL, Vision unchanged Respiratory: Lungs CTA, Non-labored respirations Cardiology: Normal rate, No murmur Neurologic: Alert, Oriented, Normal sensory, Normal motor, No focal defects, CN II-XII intact, Normal DTR's Psychiatric: Cooperative, Appropriate mood & affect Saundra Koch MD Nov 05, 2016 17:17
[2016-11-05] MEDS: diphenhydrAMINE HCL 50 MG/ML VIAL IV PUSH PRN ×2 (18:09→23:58)
[2016-11-05 20:00] VITALS: BP 130/84; PULSE 86; RESP 18; TEMP 97.1; O2SAT 99
[2016-11-05] MEDS: ZOLPIDEM TARTRATE 10 MG TAB PO PRN (20:58)
[2016-11-06] VITALS: BP_SYST 130; BP_SYST 131; BP_DIAS 74; BP_DIAS 84; PULSE 77; PULSE 86; RESP 18; TEMP 97; TEMP 97.1; O2SAT 94; O2SAT 99
[2016-11-06 04:00] VITALS: BP 134/74; PULSE 80; RESP 18; TEMP 97.3; O2SAT 99
[2016-11-06] MEDS: ACETAMINOPHEN/HYDROcodone 325 MG/10 MG TAB PO PRN ×3 (04:46→13:17)
[2016-11-06] MEDS: diphenhydrAMINE HCL 50 MG/ML VIAL IV PUSH PRN (06:30)
[2016-11-06 08:00] VITALS: BP 119/69; PULSE 79; RESP 20; TEMP 97.5; O2SAT 99
[2016-11-06] MEDS: DOCUSATE SODIUM 100 MG CAP PO SCH (09:00)
[2016-11-06] MEDS: APIXABAN 5 MG TABLET PO SCH (09:23)
[2016-11-06] MEDS: acetaZOLAMIDE 250 MG TAB PO SCH (09:23)
[2016-11-06 09:27] LABS: AUTOMATED NEUTROPHIL # 8.8 TH/MM3 (1.8-7.7); BASOPHIL # 0.1 TH/MM3 (0-0.2); BASOPHIL % 0.5 % (0.0-2.0); EOSINOPHIL # 0.1 TH/MM3 (0-0.4); EOSINOPHIL % 1.1 % (0.0-4.0); HEMO FLAGS DIFF FINAL; LYMPH % 22.7 % (9.0-44.0); LYMPHOCYTE # 2.9 TH/MM3 (1.0-4.8); MEAN CELL VOLUME 86.6 FL (80.0-100.0); MEAN CORPUSCULAR HEMOGLOBIN 28.6 PG (27.0-34.0); MEAN CORPUSCULAR HGB CONC 33.1 % (32.0-36.0); MONO % 7.1 % (0.0-8.0); NEUT % 68.6 % (16.0-70.0); PLATELET COUNT 281 TH/MM3 (150-450); RED BLOOD COUNT 4.96 MIL/MM3 (4.50-5.90); RED CELL DISTRIBUTION WIDTH 13.1 % (11.6-17.2); WHITE BLOOD COUNT 12.8 TH/MM3 (4.0-11.0)
[2016-11-06] MEDS: levETIRAcetam 500 MG TAB PO SCH (09:27)
[2016-11-06 09:58] LABS: BICARBONATE 21.2 MEQ/L (21.0-32.0); MAGNESIUM 2.4 MG/DL (1.5-2.5); POTASSIUM 3.8 MEQ/L (3.5-5.1)
[2016-11-06 10:02] LABS: INDIRECT BILIRUBIN 0.2 MG/DL (0.0-0.8); TOTAL BILIRUBIN ADULT 0.3 MG/DL (0.2-1.0)
--- NOTE | 2016-11-06 11:14 | HHI.NSPN ---
History Chief Complaint: Headaches. Venous sinus thrombosis. Interval History 11/03: continues to complain of headaches, on anticoagulation. 11/04: feeling a bit better today 11/06/16: Pt awake and alert. Complains of right sided headache but improving. Intermittent blurred vision and muffled hearing. Light sensitivity. No difficulty with speech. No paresthesias in extremities. Review of Systems General: Negative for: fever, chills, insomnia Respiratory: Negative for: shortness of breath, cough, sputum Cardiovascular: Negative for: chest pain Gastrointestinal: Negative for: nausea, vomitting, diarrhea, constipation Exam Results Vital Signs Date Time Temp Pulse Resp B/P Pulse Ox O2 Delivery O2 Flow Rate FiO2 11/06/16 10:33 16 11/06/16 08:00 97.5 79 119/69 99 Intake and Output 11/05/16 11/05/16 11/06/16 08:00 16:00 00:00 Intake Total 120 ml 600 ml 360 ml Balance 120 ml 600 ml 360 ml Physical Examination Resp: CTA bilaterally Heart: NSR no murmurs Abd: Soft positive bs Skin: No cyanosis or erythema Muscle: Moves all 4 extremities well 5/5. Symmetric. Neuro: Pt awake and alert. Follows commands well. Speech clear and appropriate. Pupils 4mm bilaterally. Light sensitivity. Lab, Micro, Other Results Last Impressions Abdomen Ultrasound 11/05/16 0000 Signed Impressions: Service Date/Time: Saturday, November 05, 2016 08:12 - CONCLUSION: 1. 3 cm nonspecific hypoechoic lesion involving the midpole the right kidney. CT scan of the kidneys with and without IV contrast suggested. Alternatively, MRI could be utilized. 2. Bowel gas limits the study. Timoteo Smith Jr., MD Chest X-Ray 11/03/16 0000 Signed Impressions: Service Date/Time: Thursday, November 03, 2016 15:52 - CONCLUSION: 1. No acute cardiopulmonary findings. Xavi Walters MD Neck CTA 10/30/16 0000 Signed Impressions: Service Date/Time: Sunday, October 30, 2016 16:01 - CONCLUSION: Normal examination. Timoteo Smith Jr., MD Head/Brain Mag Res Venography 10/30/16 0000 Signed Impressions: Service Date/Time: Sunday, October 30, 2016 21:52 - CONCLUSION: Diminished flow seen in the straight sinus, but some flow is discernible. Asymmetric flow in the sagittal sinus, diminished on the right. Timoteo Boone MD Head CTA 10/30/16 0000 Signed Impressions: Service Date/Time: Sunday, October 30, 2016 16:01 - CONCLUSION: Normal examination. Timoteo Smith Jr., MD Head CT 10/30/16 0000 Signed Impressions: Service Date/Time: Sunday, October 30, 2016 16:01 - CONCLUSION: Negative noncontrast CT brain. Timoteo Boone MD Laboratory Tests Test 11/06/16 08:48 White Blood Count 12.8 TH/MM3 Red Blood Count 4.96 MIL/MM3 Hemoglobin 14.2 GM/DL Hematocrit 43.0 % Mean Corpuscular Volume 86.6 FL Mean Corpuscular Hemoglobin 28.6 PG Mean Corpuscular Hemoglobin 33.1 % Concent Red Cell Distribution Width 13.1 % Platelet Count 281 TH/MM3 Mean Platelet Volume 8.3 FL Neutrophils (%) (Auto) 68.6 % Lymphocytes (%) (Auto) 22.7 % Monocytes (%) (Auto) 7.1 % Eosinophils (%) (Auto) 1.1 % Basophils (%) (Auto) 0.5 % Neutrophils # (Auto) 8.8 TH/MM3 Lymphocytes # (Auto) 2.9 TH/MM3 Monocytes # (Auto) 0.9 TH/MM3 Eosinophils # (Auto) 0.1 TH/MM3 Basophils # (Auto) 0.1 TH/MM3 CBC Comment DIFF FINAL Differential Comment Sodium Level 141 MEQ/L Potassium Level 3.8 MEQ/L Chloride Level 110 MEQ/L Carbon Dioxide Level 21.2 MEQ/L Anion Gap 10 MEQ/L Blood Urea Nitrogen 13 MG/DL Creatinine 0.68 MG/DL Estimat Glomerular Filtration 139 ML/MIN Rate Random Glucose 84 MG/DL Calcium Level 8.5 MG/DL Magnesium Level 2.4 MG/DL Total Bilirubin 0.3 MG/DL Direct Bilirubin 0.1 MG/DL Indirect Bilirubin 0.2 MG/DL Aspartate Amino Transf 48 U/L (AST/SGOT) Alanine Aminotransferase 239 U/L (ALT/SGPT) Alkaline Phosphatase 114 U/L Total Protein 6.6 GM/DL Albumin 3.2 GM/DL 11/05/16 11/05/16 11/06/16 15:00 23:00 07:00 Intake Total 600 ml 480 ml Balance 600 ml 480 ml Intake Oral 600 ml 480 ml # Voids 2 # Bowel Movements 1 Medical Decision Making Impression and Plan A: 26 y/o M with venous sinus thrombosis, headaches Plan Plan Plan Remarks cont nonsurgical management cont anticoagulation, lovenox to coumadin bridge cont symptomatic tx of ULLOA's Neurology following Morgan Jacques Nov 06, 2016 11:14
[2016-11-06 12:00] VITALS: BP 127/77; PULSE 90; RESP 20; TEMP 96.8; O2SAT 98
[2016-11-06] MEDS ORDERED: APIX5TAB PO (14:01)
[2016-11-06] MEDS ORDERED: LEVE500 PO (14:01)
[2016-11-06] MEDS ORDERED: DOCU1CAP39 PO (14:01)
[2016-11-06] MEDS ORDERED: HYDR-3583 PO (14:01)
[2016-11-06] MEDS ORDERED: DIPH25CA PO (14:07)
--- NOTE | 2016-11-06 14:11 | HHI.DS ---
Discharge Summary Admission Date Oct 30, 2016 at 20:09 Discharge Date: Nov 06, 2016 Admitting Diagnosis intractable ULLOA, subtherapeutic INR,hx of dural venous thrombosis (1) Hx of cerebral venous sinus thrombosis Diagnosis: Principal (2) Intractable headache Diagnosis: Principal (3) Elevated transaminase level Diagnosis: Principal (4) Subtherapeutic anticoagulation Diagnosis: Secondary Consultants Dr. Saundra Koch, Neurology Brief History Pt is 26 yo male who presented to [facility] and admitted from 10/22 -10/26. He was suffering from severe headache and photophobia. Pt had ct brain w/o contrast 10/22 and finding concerning for dural venous sinus thrombosis of straight sinus,inferior sagital sinus,torcular,right transverse sinues and possibly post sup. sagittal sinus. also right frontal sinusitis. MRI w/wo brain 10/23 negative for cva but mentions dural venous sinus thrombosis, straight,sinus,vein of hermann,right transverse sinus,right sup sigmoid sinus. MRV brain w/wo 10/23 dural venous sinus thrombosis with essentially complete occlusion of the straight sinus, vein of hermann,right transverse sinus, right sup sigmoid sinus. The inferior aspect of the right sigmoid sinus as well as the sup aspect of the right internal jugular vein were patent. Hypercoag panel included antiphospholipid ab's, KYLIE,RF,Hep B,C, spep unremarkable. Pt was sent home with therapeutic levels of coumadin but stated he still had some pain and pressure. he was given doxycycline in case of sinusitis. He has had more h/a and pressure worse over right scalp. photophobia and nausea/vomiting mentioned. In ED he is subtherapeutic on coumadin. he also complained of double vision. CBC/BMP: 11/06/16 0848 11/06/16 0848 Significant Findings Laboratory Tests Test 11/04/16 11/06/16 09:22 08:48 White Blood Count 11.2 TH/MM3 12.8 TH/MM3 (4.0-11.0) (4.0-11.0) Monocytes (%) (Auto) 10.6 % (0.0-8.0) Monocytes # (Auto) 1.2 TH/MM3 (0-0.9) Aspartate Amino Transf 101 U/L (15-37) 48 U/L (15-37) (AST/SGOT) Alanine Aminotransferase 375 U/L (12-78) 239 U/L (12-78) (ALT/SGPT) Alkaline Phosphatase 119 U/L (45-117) Albumin 3.2 GM/DL 3.2 GM/DL (3.4-5.0) (3.4-5.0) Neutrophils # (Auto) 8.8 TH/MM3 (1.8-7.7) Chloride Level 110 MEQ/L (98-107) Imaging Last Impressions Abdomen Ultrasound 11/05/16 Signed Impressions: Service Date/Time: Saturday, November 05, 2016 08:12 - CONCLUSION: 1. 3 cm nonspecific hypoechoic lesion involving the midpole the right kidney. CT scan of the kidneys with and without IV contrast suggested. Alternatively, MRI could be utilized. 2. Bowel gas limits the study. Timoteo Smith Jr., MD Chest X-Ray 11/03/16 Signed Impressions: Service Date/Time: Thursday, November 03, 2016 15:52 - CONCLUSION: 1. No acute cardiopulmonary findings. Xavi Walters MD Neck CTA 10/30/16 Signed Impressions: Service Date/Time: Sunday, October 30, 2016 16:01 - CONCLUSION: Normal examination. Timoteo Smith Jr., MD Head/Brain Mag Res Venography 10/30/16 Signed Impressions: Service Date/Time: Sunday, October 30, 2016 21:52 - CONCLUSION: Diminished flow seen in the straight sinus, but some flow is discernible. Asymmetric flow in the sagittal sinus, diminished on the right. Timoteo Boone MD Head CTA 10/30/16 Signed Impressions: Service Date/Time: Sunday, October 30, 2016 16:01 - CONCLUSION: Normal examination. Timoteo Smith Jr., MD Head CT 10/30/16 Signed Impressions: Service Date/Time: Sunday, October 30, 2016 16:01 - CONCLUSION: Negative noncontrast CT brain. Timoteo Boone MD PE at Discharge GENERAL: This is a well-nourished, well-developed patient, in no apparent distress. CARDIOVASCULAR: Regular rate and rhythm without murmurs, gallops, or rubs. RESPIRATORY: Clear to auscultation. Breath sounds equal bilaterally. No wheezes , rales, or rhonchi. GASTROINTESTINAL: Abdomen soft, non-tender, nondistended. Normal active bowel sounds MUSCULOSKELETAL: Extremities without clubbing, cyanosis, or edema. NEURO: Alert & Oriented x4 to person, place, time, situation. Moves all ext x4 Hospital Course (1) Hx of cerebral venous sinus thrombosis Status: Acute Plan: comgmt with Neurology - Pt is 26 yo male who presented to [facility] and admitted from -10/26. - He was suffering from severe headache and photophobia. - Pt had ct brain w/o contrast 10/22 and finding concerning for dural venous sinus thrombosis of straight sinus,inferior sagital sinus,torcular,right transverse sinues and possibly post sup. sagittal sinus. also right frontal sinusitis. - MRI w/wo brain 10/23 negative for cva but mentions dural venous sinus thrombosis, straight,sinus,vein of hermann,right transverse sinus,right sup sigmoid sinus. - MRV brain w/wo 10/23 dural venous sinus thrombosis with essentially complete occlusion of the straight sinus, vein of hermann,right transverse sinus, right sup sigmoid sinus. The inferior aspect of the right sigmoid sinus as well as the sup aspect of the right internal jugular vein were patent. - Hypercoag panel included antiphospholipid ab's, KYLIE,RF,Hep B,C, spep, homocysteine, unremarkable. Pt was sent home with therapeutic levels of coumadin but stated he still had some pain and pressure. he was given doxycycline in case of sinusitis. He has had more h/a and pressure worse over right scalp. photophobia and nausea/vomiting mentioned. In ED he is subtherapeutic on coumadin. he also complained of double vision. 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 - lovenox, changed to eliquis 10mg BID. Upon discharge will need eliquis 10mg bid x 8d, and then 5mg bid - UpToDate recommends coumadin, but pt admitted to [place] with subtherapeutic coumadin, so I do NOT think coumadin will be a adequate option for anticoagulation - UpToDate recommends anticoagulation for 3 to 12 months - Pt feels that symptoms correlated with plasma donation. Case informally d/w Hematology. concurred that plasma donation may have theoretically contributed to pt's venous thrombosis by causing intravascular depletion and pt should NOT donate plasma in the future. - diamox 500mg BID - Mannitol x 24 hours (completed) - trial of gabapentin 300mg TID --> pt declined. He took gabapentin in the past for knee pain (?) and did NOT like the way that it made him feel - keppra per Neurology - norco to q4h prn - case d/w Neurology (11/05/16), Dr. Koch. Dr. Koch agrees with discharge. - Pt denies any recent illicit drug use. Pt denies any IV drug use. Pt admits to h/o using "pills" but NOT for the last several years. - discharge to home 11/06/16 - pt to f/u with PCP in 1 week - Pt to f/u with Dr. Koch in 2 weeks. - Unable to do LP with anticoagulation. partial hypercoagulable w/up at [facility] reviewed. more sent here but interpret cautiously as it some of it may be influenced by recent use of coumadin ...although levels were low on arrival (2) Intractable headache Status: Acute Plan: see above (3) Subtherapeutic anticoagulation Status: Acute Plan: see above (4) Elevated transaminase level Status: Acute Plan: - unclear etiology - consider drug related - trending downward - hepatitis panel negative - Abd US did NOT identify any acute pathology Pt Condition on Discharge: Stable Discharge Disposition: Discharge Home Discharge Instructions DIET: Follow Instructions for: As Tolerated, No Restrictions Activities you can perform: Weight Bearing as [place] Activities to Avoid: Concussion Sports, Contact Sports, Weight Bearing, Prolonged Standing, Strenuous Activity Follow up Referrals: Neurology - 2 Weeks with Saundra Koch MD PCP Follow-up with Dr. Tish Rose New Medications: Acetazolamide (Acetazolamide) 250 Mg Tab 500 MG PO BID venous thrombosis #40 Ref 0 TAB Diphenhydramine (Diphenhydramine) 25 Mg Cap 25 MG PO Q8H PRN ALLERGIES Days 30 Ref 0 CAP Apixaban (Eliquis) 5 Mg Tab 5 MG PO BID 10mg PO BID x 8d,then 5mg PO BID venous sinus thrombosis #40 Ref 0 TAB Docusate Sodium (Dok) 100 Mg Cap 100 MG PO BID narcotic use #60 Ref 0 CAP Hydrocodone-Acetaminophen (Hydrocodone-Acetaminophen) 10-325 mg Tab 1 TAB PO Q4H PRN pain #40 Ref 0 TAB Levetiracetam (Keppra) 500 Mg Tab 500 MG PO Q12HR seizure prophylaxis #60 Ref 0 TAB Narinder Nieves DO Nov 06, 2016 14:10
[2016-11-06] MEDS ORDERED: ACET250T3 PO (14:13)
== END 2016-11-06 16:13 | disposition home or self-care (01) | DRG 102 ==
LOC: NEPC 13:49 → NEDA 20:09 → N05A 22:19
PROVIDERS: ADMIT Hospitalist; ATTEND Hospitalist
DX: G93.2 Benign intracranial hypertension (principal); G08 Intracranial and intraspinal phlebitis and thrombophlebitis; G47.00 Insomnia, unspecified; R79.1 Abnormal coagulation profile; Z79.01 Long term (current) use of anticoagulants; R74.0 Nonspecific elevation of levels of transaminase and lactic acid dehydrogenase [LDH]
CPT/HCPCS: 70450; 70496; 70498; 70546; 71010; 76700; 76937; 80048; 80053; 80076; 81240; 81241; 83735; 85025; 85303; 85306; 85610; 85730; 96372; 96374; 96375; 96376; A9579; J1100; J1170; J1200; J1650; J2150; J2270; J2405; J3030; J7030; Q9967

== ENCOUNTER 2016-11-23 02:36 | Inpatient (IN) | payer OTHER ==
[~2016-11-23] VITALS: Ht 177.8 cm; Wt 95.0 kg
[2016-11-23] VITALS (7 sets, daily range): BP systolic 114–155; BP diastolic 61–97; PULSE 69–92; RESP 12–24; TEMP 97.9–98.6; O2SAT 96–100
[~2016-11-23 02:36] MED LIST: ACET250T3 PO; APIX5TAB PO; DIPH25CA PO; DOCU1CAP39 PO; HYDR-3583 PO; LEVE500 PO
[2016-11-23] MEDS ORDERED: APIX5TAB PO (02:55)
[2016-11-23] MEDS ORDERED: AMBI10TA PO (02:55)
--- NOTE | 2016-11-23 02:57 | PD ---
HPI Chief Complaint: Headache Time Seen by Provider: 02:57 Travel History International Travel<30 days: No Contact w/Intl Traveler<30days: No Traveled to known affect area: No History of Present Illness HPI The patient is a 26 year old male who presents to the [facility] emergency department with a history of a headache and double vision that began at the end of 09/2016. He went to the [facility] in [place], and he was diagnosed with a dural venous sinus thrombosis. He reports that after discussion with a dental assistant teacher by his neurologist it was thought that this may have been triggered by plasma donations. He is followed by for his care. The patient was initially placed on Coumadin, however he was not tolerating this well and it was switched to Eliquis. The patient reports that he has been taking [place] for pain. He ran out a week ago. Over the last 2 days his headache has become severe again. He reports that his double vision also worsened this evening. The patient denies having any numbness or tingling to his extremities. He denies having any weakness to his extremities. He denies having any neck pain. He reports that the headache is located over his forehead , worse on the right side and goes across his scalp. He reports that it is a constant aching sensation that has intermittent sharp sensations in the right side of his head. The patient went to the [facility] in [place] again today for the pain. The patient underwent laboratory studies, CT scan of the brain that was unremarkable and an MRA MRV of the brain which showed improvement of his thrombosis, however due to the intractable nature of the pain in his neurologist was called. Dr. Koch recommended that he be transferred to this facility. He was accepted in transfer by him. The patient denies any recent fevers cough, congestion, neck pain, chest pain, shortness of breath, abdominal pain, vomiting, diarrhea, urinary symptoms, or other neurologic symptoms. PFSH Past Medical History Narrative Medical The patient's past medical history is significant for a dural venous sinus thrombosis, seizure disorder, arthritis in his hand, gastritis. Hx Anticoagulant Therapy: Yes (Eliquis) Arthritis: Yes (R FOURTH DIGIT) Cancer: No Cardiovascular Problems: No Chemotherapy: No Cerebrovascular Accident: No Diabetes: No Diminished Hearing: No Endocrine: No Gastrointestinal Disorders: Yes (GASTRITIS 06/2016) Genitourinary: No Headaches: Yes Immune Disorder: No Neurologic: Yes (thrombosis) Psychiatric: No Reproductive: No Respiratory: No Migraines: Yes Seizures: Yes (ONE SEIZURE IN 2010) Tetanus Vaccination: < 5 Years Influenza Vaccination: No Past Surgical History Narrative Surgical The patient denies any past surgical history. Surgical History: No Previous Surgery Other Surgery: No Social History Alcohol Use: No Tobacco Use: Yes (occasionally) Substance Use: No Allergies-Medications (Allergen,Severity, Reaction): Coded Allergies: Ultram (Verified Allergy, Unknown, 10/30/16) Reported Meds & Prescriptions Reported Meds & Active Scripts Active Diphenhydramine (Diphenhydramine HCl) 25 Mg Cap 25 Mg PO Q8H PRN 30 Days Keppra (Levetiracetam) 500 Mg Tab 500 Mg PO Q12HR Reported Ambien (Zolpidem Tartrate) 10 Mg Tab 10 Mg PO HS PRN Eliquis (Apixaban) 5 Mg Tab 10 Mg PO BID Review of Systems Except as stated in HPI: all other systems reviewed are Neg General / Constitutional: No: Fever Eyes: Positive: Blurred Vision, Photophobia, No: Visual changes HENT: Positive: Headaches, No: Neck Stiffness, Neck Pain Cardiovascular: No: Chest Pain or Discomfort Respiratory: No: Shortness of Breath Gastrointestinal: No: Abdominal Pain Genitourinary: No: Dysuria Musculoskeletal: No: Pain Skin: No Rash Neurologic: Positive: Headache, No: Weakness, Focal Abnormalities, Change in Mentation, Slurred Speech, Sensory Disturbance Psychiatric: No: Depression Endocrine: No: Polydipsia Hematologic/Lymphatic: No: Easy Bruising Physical Exam Narrative General: The patient is a well-developed well-nourished male in no acute distress. Head and Neck exam: Head is normocephalic atraumatic. Eyes: EOMI, pupils are equal round and reactive to light. The patient reports having double vision on exam. No field deficits. Nose: Midline septum with pink mucous membranes Mouth: Dentition unremarkable. Moist mucus membranes. Posterior oropharynx is not erythematous. No tonsillar hypertrophy. Uvula midline. Airway patent. Neck: No palpable lymphadenopathy. No nuchal rigidity. No thyromegaly. Cardiovascular: Regular rate and rhythm without murmurs, gallops, or rubs. Lungs: Clear to auscultation bilaterally. No wheezes, rhonchi, or rales. Abdomen: Soft, without tenderness to palpation in all 4 quadrants of the abdomen. No guarding, rebound, or rigidity. Normal bowel sounds are audible. No tenderness on palpation of McBurney's point. Negative Wilkerson's sign. Extremities: No clubbing, cyanosis, or edema. 2+ pulses in all 4 extremities. Calf tenderness on palpation. Back: No spinous process tenderness to palpation. No costovertebral angle tenderness to palpation. Neurologic Exam: Cranial nerves 2-12 were intact on exam. Strength is 5/5 in all 4 extremities. No sensory deficits noted. Skin Exam: No rash noted. Intact skin that is warm and dry. Data Data Last Documented VS Vital Signs Date Time Temp Pulse Resp B/P Pulse Ox O2 Delivery O2 Flow Rate FiO2 11/23/16 04:51 92 18 155/97 100 Room Air 11/23/16 02:44 97[address]v Brain W Iv Contrast W 3d (11/23/16 ) Iohexol 350 Inj (Omnipaque 350 Inj) (11/23/16 03:27) Admit Order (Ed Use Only) (11/23/16 04:53) MDM Medical Decision Making Medical Screen Exam Complete: Yes Emergency Medical Condition: Yes Medical Record Reviewed: Yes Interpretation(s) Last Impressions Brain CT 11/23/16 0000 Signed Impressions: Service Date/Time: Wednesday, November 23, 2016 03:19 - CONCLUSION: 1. No evidence of mass effect, sulcal effacement, or narrowing of the ventricles. 2. Contrast is seen within the sagittal sinus, straight sinus, and right transverse sinus. Timoteo Boone MD Differential Diagnosis Intractable headache, versus worsening dural venous sinus thrombosis, versus tension headache, versus migraine headache Narrative Course During the course of the patients emergency department visit, the patients history, examination, and differential diagnosis were reviewed with the patient. The patient had IV access obtained and blood work sent for analysis. The patient was on a environmental monitoring specialist with oximetry and blood pressure monitoring. The patient's record from the other facility was reviewed. A call was placed out to the patient's neurologist that excepted the patient transferred to this facility. The patient was initially provided hydromorphone 0.5 mg IV for pain, Zofran 4 mg IV for nausea, normal saline IV fluids were started. The patients laboratory studies were reviewed from the other facility and remarkable for a white count of 9.1, hemoglobin 13.8, platelets 342, neutrophils 55.6, lymphocytes 34.9, monocytes 6.1. PT is 13.7, INR 1.0, PTT 28.8, sodium 141, potassium 3.6, chloride 100, CO2 26, glucose 110, BUN 10, creatinine 0.67, alkaline phosphatase 89, AST 28, ALT 54, total bilirubin 0.5. Radiology studies were reviewed from the other facility and remarkable for a CT scan of the brain without contrast that showed no acute intracranial hemorrhage , previously seen hyperdensities involving the inferior sagittal sinus and right transverse sinus has significantly improved with much less hyperdense thrombus identified. There is still some residual hyperdense thrombus within the transverse sinus laterally and possibly at the junction of the sigmoid sinus. An MRA, MRV was done at that facility which revealed a negative MRA of the head, and near complete resolution of the previously demonstrated venous thrombosis involving the distal superior sagittal sinus, right transverse sinus , and proximal right sigmoid sinus. I spoke to regarding this patient's case. He did agree to see the patient in consultation. He recommended admission. He recommended a CT V of the patient's brain. CT V showed no acute abnormality. The patients results were discussed with the patient, including the plan of care. I explained that further testing and/ or monitoring is indicated based on the patients history, examination, and/ or laboratory findings. Therefore, I recommended admission for additional evaluation. The patient expressed understanding and was agreeable with this plan. The patient was admitted to the hospital in stable condition and sent to a bed under the care of the [facility] hospitalist service. Physician Communication Physician Communication I spoke to Dr. Koch regarding this patient's case at approximately 3 AM. He did agree to see the patient in consultation. He requested that the patient have a CT venogram done. He requested that the patient be admitted to the hospital. The patient's case will be discussed with the hospitalist regarding admission. The patient's case was discussed with Dr. Monson who did agree to admit the patient to Dr. Nieves service. Diagnosis Primary Impression: Intractable headache Qualified Code: R51 - Intractable headache, unspecified chronicity pattern, unspecified headache type Additional Impression: Hx of cerebral venous sinus thrombosis Admitting Information Admitting Physician Requests: Dasia Cabezas MD Nov 23, 2016 02:57
[2016-11-23] MEDS ORDERED: IOHEXOL 350 MG/ML 10 ML VIAL (for RAD DIAG) IV ONE (03:27)
--- NOTE | 2016-11-23 04:29 | RADRPT ---
EXAM DATE/TIME: 11/23/2016 03:19 [facility] COMPARISON: CTA BRAIN W 3D RECON, October 30, 2016, 16:01. CT BRAIN W/O CONTRAST, October 30, 2016, 16:01. MRV BRAIN W/WO CONTRAST, October 30, 2016, 21:52. INDICATIONS : Dural venous sinus thrombosis. Headache and blurred vision. Transfer from [facility]. IV CONTRAST: 71 cc Omnipaque 350 (iohexol) IV RADIATION DOSE: 25.51 CTDIvol (mGy) MEDICAL HISTORY : Seizures. SURGICAL HISTORY : None. ENCOUNTER: Initial ACUITY: 1 day PAIN SCALE: 7/10 LOCATION: cranial TECHNIQUE: Volumetric scanning was performed using a multi-row detector CT scanner. The data was post processed with a variety of visualization algorithms including full volume maximum intensity projection, multi -planar sliding thin slab reformation, curved planar reformation, and surface rendering techniques. Using automated exposure control and adjustment of the mA and/or kV according to patient size, radiat ion dose was kept as low as reasonably achievable to obtain optimal diagnostic quality images. DICO M format image data is available electronically for review and comparison. FINDINGS: Prior MRV on 10/30/16 had demonstrated diminished flow in the straight sinus. On today's examination, the ventricles are normal in size. No evidence of midline shift. The posterior fossa structures are grossly intact. Contrast is seen in the sagittal sinus and straight sinus and internal cerebral vei ns. There is asymmetry to the torcula Herophili with predominant contrast on the right in the transv erse sinus. Arterial structures are also seen on the scan and no vessel truncation or aneurysm forma tion seen. Contrast is seen in the anterior communicating artery and in the left PCOM CONCLUSION: 1. No evidence of mass effect, sulcal effacement, or narrowing of the ventricles. 2. Contrast is seen within the sagittal sinus, straight sinus, and right transverse sinus. Timoteo Boone MD on November 23, 2016 at 4:11 Board Certified Radiologist. This report was verified electronically.
[2016-11-23] MEDS ORDERED: ONDANSETRON HCL 4 MG/2 ML VIAL IV PUSH ONE (05:00)
[2016-11-23] MEDS ORDERED: HYDROmorphone HCL PF 1 MG/ML VIAL IV PUSH ONE (05:00)
[2016-11-23] MEDS: SODIUM CHLOR 0.9% 1000 ML INJ 1,000 ML IV SCH ×2 (05:14→16:55)
[2016-11-23] MEDS ORDERED: ONDANSETRON HCL 4 MG/2 ML VIAL IV PRN (08:45)
[2016-11-23] MEDS ORDERED: ACETAMINOPHEN 325 MG TAB PO PRN (08:45)
[2016-11-23] MEDS: levETIRAcetam 500 MG TAB PO SCH ×2 (09:07→20:19)
[2016-11-23] MEDS: APIXABAN 5 MG TABLET PO SCH ×2 (09:07→20:19)
[2016-11-23] MEDS: HYDROmorphone HCL PF 1 MG/ML VIAL IV PUSH PRN ×3 (09:08→20:20)
--- NOTE | 2016-11-23 09:23 | HHI.HP ---
HPI Service [facility] Hospitalists Primary Care Physician No Primary Care Physician Admission Diagnosis Intractable headache, history of dural venous sinus thrombosis Chief Complaint: Headache, visual changes Travel History International Travel<30 Days: No Contact w/Intl Traveler <30 Da: No Traveled to Known Affected Are: No History of Present Illness Mr. West is a 26 y/o male who was recently diagnosed with dural venous sinus thrombosis in 09/2016 after he developed severe headache and photophobia. Pt was admitted to [facility] initially from 10/22-10/26 and had an extensive workup there which included an MRV brain W/WO contrast which noted dural venous sinus thrombosis with essentially complete occlusion of the straight sinus, vein of Nguyễn, right transverse sinus, and right sup sigmoid sinus. The inferior aspect of the right sigmoid sinus as well as the superior aspect of the right internal jugular vein were patent. He underwent a hypercoagulable workup which included antiphospholipid ab's, KYLIE, RF, Hep B/C, SPEP, homocysteine which were unremarkable. Pt was sent home with therapeutic levels of Coumadin, He was then admitted to [facility] from 10/30-11/06 after presenting with increased headache and pressure worse over right scalp with associated photophobia and nausea/vomiting. 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 His anticoagulant was changed to Eliquis 10mg BID. Pt was found to have be heterozygous for prothrombin gene mutation on labs drawn during his last admission here. Upon discharge will need Eliquis 10mg bid x 8d , and then 5mg bid. He states that following discharge when he decreased his dose to Eliquis to 5mg BID that he started having worsening headaches and went to a walk-in clinic in [place] where they told him to go back on the Eliquis 10mg BID which he did. He states that he felt like he had some improvement after increasing his dose of the Eliquis. He also stopped taking the Diamox following discharge because he felt like that was making his pressure sensation in his head worse. Pt presented back to the ED at [facility] last night with complaints of worsening headache and double vision over the previous 2 days. He reports that his double vision also worsened more so with the right eye. He states that he now has issues with seeing the same object staggered separately whereas before it was just blurry. He states that if he closes his right eye that his vision improves. The patient denies having any numbness or tingling to his extremities. He denies having any weakness to his extremities. He denies having any neck pain. He reports that the headache is located over his right forehead, and goes across his scalp. He reports that it is a constant aching sensation that has intermittent sharp stabbing pain in the right side of his head. Per the ED notes, the workup at [facility] included laboratory studies which were remarkable for a white count of 9.1, hgb 13.8, platelets 342, neutrophils 55.6, lymphocytes 34.9, monocytes 6.1. PT is 13.7, INR 1.0, PTT 28.8, sodium 141, potassium 3.6, chloride 100, CO2 26, glucose 110, BUN 10, creatinine 0.67, alkaline phosphatase 89, AST 28, ALT 54, total bilirubin 0.5. CT scan of the brain WO contrast showed no acute intracranial hemorrhage, previously seen hyperdensities involving the inferior sagittal sinus and right transverse sinus has significantly improved with much less hyperdense thrombus identified. There is still some residual hyperdense thrombus within the transverse sinus laterally and possibly at the junction of the sigmoid sinus. An MRA and MRV was done at that facility which revealed a negative MRA of the head, and near complete resolution of the previously demonstrated venous thrombosis involving the distal superior sagittal sinus, right transverse sinus , and proximal right sigmoid sinus. the pt continued to complain of severe headache and his Neurologist, Dr. Koch, was contacted who requested that the pt be transferred to [facility] for further evaluation. CTV was performed which noted no evidence of mass effect, sulcal effacement, or narrowing of the ventricles and contrast is seen within the sagittal sinus, straight sinus, and right transverse sinus. Currently pt reports that his headache is still severe and still with the visual changes noted above. Review of Systems Constitutional: DENIES: Fever, Chills Eyes: COMPLAINS OF: Diplopia, Photosensitivity, Double Vision, DENIES: Vision loss Ears, nose, mouth, throat: DENIES: Hearing loss, Nasal discharge, Running Nose Respiratory: DENIES: Cough, Shortness of breath Cardiovascular: DENIES: Chest pain, Palpitations Gastrointestinal: DENIES: Abdominal pain, Nausea, Vomiting Musculoskeletal: DENIES: Back pain, Neck pain Integumentary: DENIES: Rash Neurologic: COMPLAINS OF: Headache, DENIES: Abnormal gait, Localized weakness , Paresthesias, Speech Problems, Poor Balance Psychiatric: DENIES: Confusion Past Family Social History Past Medical History Extensive dural venous sinus thrombosis as above Hx c.diff colitis Hx seizure after "ultram" Insomnia Past Surgical History None reported Reported Medications Diphenhydramine 25 Mg PO Q8H PRN Keppra 500 Mg PO Q12HR Ambien 10 Mg PO HS PRN Eliquis 10 Mg PO BID Allergies: Coded Allergies: Ultram (Verified Allergy, Unknown, 10/30/16) Family History Father with hx of PAD Social History Denies any recent alcohol, tobacco or illicit drug use Physical Exam Vital Signs Vital Signs Date Time Temp Pulse Resp B/P Pulse Ox O2 Delivery O2 Flow Rate FiO2 11/23/16 07:50 98.0 70 12 121/74 97 11/23/16 06:27 98.4 69 18 114/64 98 11/23/16 04:51 92 18 155/97 100 Room Air 11/23/16 02:44 97.9 72 18 133/82 97 Physical Exam GENERAL: This is a well-nourished, well-developed patient, in no apparent distress. HEENT: Atraumatic. Normocephalic. No temporal or scalp tenderness. No scleral icterus. Airway patent. NECK: Trachea midline, supple, nontender. CARDIO: Regular RESP: CTA bilaterally. No wheezes, rales, or rhonchi. ABD: +BS, soft, non-tender, nondistended. EXT: Extremities without clubbing, cyanosis, or edema. NEURO: Awake and alert. Motor and sensory grossly within normal limits. Five out of 5 muscle strength in all muscle groups. Normal speech. Imaging Last Impressions Brain CT 11/23/16 0000 Signed Impressions: Service Date/Time: Wednesday, November 23, 2016 03:19 - CONCLUSION: 1. No evidence of mass effect, sulcal effacement, or narrowing of the ventricles. 2. Contrast is seen within the sagittal sinus, straight sinus, and right transverse sinus. Timoteo Boone MD Septic Shock Reassessment Heart: Regular rate and rhythm Lungs: Clear Skin: Warm Peripheral Pulses: Bounding Right Radial Bounding Left Radial Bounding Right Popliteal Bounding Left Popliteal Bounding Right Dorsalis Pedis Bounding Left Dorsalis Pedis Bounding Right Posterior Tibial Bounding Left Posterior Tibial Assessment and Plan Problem List: (1) Intractable headache Status: Chronic Plan: - Pt is a 26 y/o with hx of dural venous sinus thrombosis in 09/2016 - He underwent a hypercoagulable workup in [place] which included antiphospholipid ab's, KYLIE, RF, Hep B/C, SPEP, homocysteine which were unremarkable. - Pt was initially sent home on Coumadin but was then admitted to [facility] from 10/30- after presenting with increased headache and pressure worse over right scalp with associated photophobia and nausea/vomiting. 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 - His anticoagulant was changed to Eliquis 10mg BID. - Pt was found to have be heterozygous for prothrombin gene mutation on labs drawn during his last admission here. - Pt presented back to the ED at [facility] last night with complaints of worsening headache and double vision over the previous 2 days. He reports that his double vision also worsened more so with the right eye. He states that he now has issues with seeing the same object staggered separately whereas before it was just blurry. He states that if he closes his right eye that his vision improves. - Pt initially went back to [facility] ED and workup included CT scan of the brain WO contrast showed no acute intracranial hemorrhage, previously seen hyperdensities involving the inferior sagittal sinus and right transverse sinus has significantly improved with much less hyperdense thrombus identified. There is still some residual hyperdense thrombus within the transverse sinus laterally and possibly at the junction of the sigmoid sinus. An MRA and MRV was done at that facility which revealed a negative MRA of the head, and near complete resolution of the previously demonstrated venous thrombosis involving the distal superior sagittal sinus, right transverse sinus, and proximal right sigmoid sinus. - Pt continued to complain of severe headache and his Neurologist, Dr. Koch, was contacted who requested that the pt be transferred to [facility] for further evaluation. - CTV was performed which noted no evidence of mass effect, sulcal effacement, or narrowing of the ventricles and contrast is seen within the sagittal sinus, straight sinus, and right transverse sinus. - Neurology has been consulted. - Pain meds PRN - Eliquis 10mg po BID resumed - Its unclear why the pt continues to have these severe headaches and vision changes despite noted improvement on his imaging studies, although imaging studies from [place] last night did report some residual hyperdense thrombus within the transverse sinus laterally and possibly at the junction of the sigmoid sinus. ?continued increased intracranial pressure. Pt felt that the Diamox he had been on was making him feel worse so he had stopped taking this about a week after discharge. - Diet as tolerated - Supportive care (2) Diplopia Status: Chronic Plan: - See above. (3) Hx of cerebral venous sinus thrombosis Status: Chronic Plan: - See above. Assessment and Plan Patient examined. Assessment and plan formulated with Jesusita Falk PA-C. I agree with the above. recent venous sinus thombosis on eliquis. pt stopped diamox and says worsened h/a. repeat mrv shows improvement now he says worsening h/a and double vision pt transferred here from [place] per Neurology. consult pending. prothrombin gene mutation noted. Problem Qualifiers (1) Intractable headache: Qualified Code: R51 - Intractable headache, unspecified chronicity pattern, unspecified headache type Jesusita Falk Nov 23, 2016 09:23 Wilmer Delgado MD Nov 23, 2016 14:56
[2016-11-23] MEDS: ACETAMINOPHEN/HYDROcodone 325 MG/7.5 MG TAB PO PRN ×2 (12:59→17:33)
[2016-11-23 18:34] LABS: AUTOMATED NEUTROPHIL # 5.3 TH/MM3 (1.8-7.7); BASOPHIL % 0.5 % (0.0-2.0); EOSINOPHIL # 0.3 TH/MM3 (0-0.4); EOSINOPHIL % 2.7 % (0.0-4.0); HEMATOCRIT 42.6 % (39.0-51.0); HEMO FLAGS DIFF FINAL; LYMPH % 32.4 % (9.0-44.0); MEAN CELL VOLUME 85.1 FL (80.0-100.0); MEAN CORPUSCULAR HEMOGLOBIN 28.9 PG (27.0-34.0); MONO % 6.7 % (0.0-8.0); NEUT % 57.7 % (16.0-70.0); PLATELET COUNT 371 TH/MM3 (150-450); RED BLOOD COUNT 5.01 MIL/MM3 (4.50-5.90); RED CELL DISTRIBUTION WIDTH 13.5 % (11.6-17.2); WHITE BLOOD COUNT 9.1 TH/MM3 (4.0-11.0)
[2016-11-23 18:57] LABS: ALT (GPT) 73 U/L (12-78); ANION GAP 8 MEQ/L (5-15); AST (GOT) 33 U/L (15-37); BICARBONATE 27.3 MEQ/L (21.0-32.0); BLOOD UREA NITROGEN 13 MG/DL (7-18); CHLORIDE 104 MEQ/L (98-107); GLOMERULAR FILTRATION RATE 141 ML/MIN (>89); POTASSIUM 3.8 MEQ/L (3.5-5.1); SODIUM (NA) 139 MEQ/L (136-145)
[2016-11-23 19:00] LABS: ALKALINE PHOSPHATASE 107 U/L (45-117); TOTAL BILIRUBIN ADULT 0.4 MG/DL (0.2-1.0)
--- NOTE | 2016-11-23 20:15 | MB ---
cc: DAISY WALKER M.D. DATE OF CONSULTATION 11/23/2016 DATE OF 1990, 26 years old. REASON FOR CONSULTATION History of sinus thrombosis with refractory headache and diplopia. HISTORY OF THE PRESENT ILLNESS A 26-year-old man who was initially seen by Dr. Koch, diagnosed with dural sinus venous sinus thromboses with development of severe headache and photophobia admitted to [facility] from 10/22 to 10/26. Had an extensive workup. An MRV with and without contrast that showed the sinus thromboses with occlusion of the straight sinus vein of [place], right transverse and right sigmoid sinus. He had a hypercoagulable workup which was completed at that time, sent home on Coumadin, apparently the levels were therapeutic, and then admitted here from to 11/06 after increased headache over the right scalp with worsening photophobia, nausea, vomiting. It was thought possibly that his intracranial pressures were elevated from the venous thromboses. He was changed to Eliquis 10 mg twice a day. I believe he was placed on Diamox. He was found to be heterozygous for prothrombin gene mutation, labs that were drawn here and discharged on Eliquis 10 mg twice a day for 8 days and then 5 mg b.i.d. thereafter. As he decreased his dose to 5 mg b.i.d. he stated having worsening headaches. He went to the walk-in clinic in [place] and they told him to go back to 10 mg twice a day which he did. He had some improvement but he stopped taking the Diamox because he felt it was making him more sick. He went to [facility] last night with more increased headaches, double vision for the last couple of days. He does tend to keep his right eye closed. It resolves the double vision when he closes either eye and keeps one open. He does not have any weakness in arms or legs. No nausea, vomiting. The headache is still a band-like tightening, pressure-like more over the right side. He had a CT of the brain without that showed no acute hemorrhage, but the hyperdensities in the inferior sagittal sinus and right transverse had improved with much less hyperdense thrombus identified. Subsequently he had also an MRA of the [place] that showed near complete resolution of the demonstrated venous thrombosis involving the distal superior sagittal right transverse and proximal right sigmoid sinus. Hence apparently Dr. Koch was contacted and he advised him to come to [place] for further evaluation. CTV was done here, it did not show anything acute. No hydrocephalous with contrast in the sinuses as described in the report. PAST MEDICAL HISTORY Is of: 1. Sinus thromboses as stated. 2. History of C. difficile colitis. 3. History of seizure times one after Ultram many years ago. 4. Insomnia. He does not have a history of epilepsy. MEDICATIONS Current medications are: 1. Benadryl as needed. 2. Keppra 500 milligrams q.12h preventatively. 3. Ambien at bedtime as needed. 4. Eliquis 10 milligrams as needed. ALLERGIES ARE NOTED TO BE, SIDE EFFECTS, ULTRAM. FAMILY HISTORY PAD in the father. SOCIAL HISTORY He does not drink, smoke or use any drugs. PHYSICAL EXAMINATION VITAL SIGNS: Temperature is 98.6, pulse 83, respiratory rate 16, blood pressure 128/67, sating at 97% room air. NECK: His neck is supple. There are no bruises. HEART: Regular. LUNGS: Are clear. NEUROLOGIC: He is awake, alert. He is oriented and fluent. His pupils are reactive. There is no ptosis but he tends to keep the right eye closed because of the diplopia that occurs when he keeps both eyes open. Extraocular muscles are intact. No nystagmus. Face symmetrical. Tongue midline. Motor li he does not exhibit any drift or leg lag. Cerebellar is normal. Toes withdraws. DTRs are 2+. Gait is withheld. Sensory is normal. LABORATORY DATA Labs are not reviewed because they were not any labs drawn on his visit. He did have labs drawn I am told at the other hospital. And per chart it states that his PT was 13.7, INR 1.0, PTT 28.1. His sodium 141, potassium 3.6, CO2 26, glucose 110, creatinine 0.67, AST 28, ALT 54, total bili 0.5. White count 9.1, hemoglobin 13.8, platelet 342,000. IMPRESSION 1. A 26-year-old man with a history of dural venous sinus thrombosis from September of 2016 with a positive hypercoagulable panel here for heterozygous prothrombin gene mutation with increased headache and worsening diplopia. Recommend continuing Eliquis 10 mg twice a day. 2. I would also start him on some, since he did not like the Diamox, let us put him on some topiramate 50 milligrams b.i.d. Give his first dose tonight and then will continue twice a day. I would also repeat a CBC and a metabolic panel. If his symptoms did not improve, further imaging may be warranted. However, looking at imaging from last night and clearly in the chart there is improvement. I do not think a triptan would be of high yield at this point. As needed pain medicine can be used such as [place] and/or Dilaudid but for short-term. I will also go ahead and get an EEG. Continue his Keppra for now. Further recommendations will be made if needed. MD TARI Villalba/MILTON /3:22 PM /7:55 PM
[2016-11-23] MEDS: ZOLPIDEM TARTRATE 10 MG TAB PO PRN (20:18)
[2016-11-23] MEDS: TOPIRAMATE 25 MG TAB PO SCH (20:19)
[2016-11-24 00:08] VITALS: BP 102/66; PULSE 78; RESP 18; TEMP 97.7; O2SAT 97
[2016-11-24] MEDS: ACETAMINOPHEN/HYDROcodone 325 MG/7.5 MG TAB PO PRN ×3 (02:44→16:44)
[2016-11-24 03:51] VITALS: BP 117/67; PULSE 79; RESP 18; TEMP 98.1; O2SAT 93
[2016-11-24] MEDS: HYDROmorphone HCL PF 1 MG/ML VIAL IV PUSH PRN ×5 (04:41→22:27)
[2016-11-24] MEDS: SODIUM CHLOR 0.9% 1000 ML INJ 1,000 ML IV SCH ×2 (04:44→16:44)
[2016-11-24 07:28] VITALS: BP 107/50; PULSE 70; RESP 16; TEMP 98.3; O2SAT 98
--- NOTE | 2016-11-24 08:48 | HHI.PR ---
Subjective Remarks Pt reports that last night his double visions seemed to be a bit better. He woke up around 0200 with sneezing and states that his headache has been worse since then. Currently he feels like his headache is 8/10 in severity. No nausea/vomiting. Objective Vitals Vital Signs Date Time Temp Pulse Resp B/P Pulse Ox O2 Delivery O2 Flow Rate FiO2 11/24/16 07:28 98.3 70 16 107/50 98 11/24/16 05:00 18 11/24/16 03:51 98.1 79 18 117/67 93 11/24/16 03:31 16 11/24/16 00:08 97.7 78 18 102/66 97 11/23/16 20:08 97.9 85 18 131/61 97 11/23/16 15:51 98.0 76 24 120/63 96 11/23/16 11:46 98.6 83 16 128/68 97 Result Diagram: 11/23/16 1804 11/23/16 1810 Other Results Laboratory Tests Test 11/23/16 11/23/16 18:04 18:10 White Blood Count 9.1 TH/MM3 Red Blood Count 5.01 MIL/MM3 Hemoglobin 14.5 GM/DL Hematocrit 42.6 % Mean Corpuscular Volume 85.1 FL Mean Corpuscular Hemoglobin 28.9 PG Mean Corpuscular Hemoglobin 34.0 % Concent Red Cell Distribution Width 13.5 % Platelet Count 371 TH/MM3 Mean Platelet Volume 7.8 FL Neutrophils (%) (Auto) 57.7 % Lymphocytes (%) (Auto) 32.4 % Monocytes (%) (Auto) 6.7 % Eosinophils (%) (Auto) 2.7 % Basophils (%) (Auto) 0.5 % Neutrophils # (Auto) 5.3 TH/MM3 Lymphocytes # (Auto) 3.0 TH/MM3 Monocytes # (Auto) 0.6 TH/MM3 Eosinophils # (Auto) 0.3 TH/MM3 Basophils # (Auto) 0.0 TH/MM3 CBC Comment DIFF FINAL Differential Comment Sodium Level 139 MEQ/L Potassium Level 3.8 MEQ/L Chloride Level 104 MEQ/L Carbon Dioxide Level 27.3 MEQ/L Anion Gap 8 MEQ/L Blood Urea Nitrogen 13 MG/DL Creatinine 0.67 MG/DL Estimat Glomerular Filtration 141 ML/MIN Rate Random Glucose 97 MG/DL Calcium Level 8.8 MG/DL Total Bilirubin 0.4 MG/DL Aspartate Amino Transf 33 U/L (AST/SGOT) Alanine Aminotransferase 73 U/L (ALT/SGPT) Alkaline Phosphatase 107 U/L Total Protein 7.4 GM/DL Albumin 3.8 GM/DL Imaging Last Impressions Brain CT 11/23/16 0000 Signed Impressions: Service Date/Time: Wednesday, November 23, 2016 03:19 - CONCLUSION: 1. No evidence of mass effect, sulcal effacement, or narrowing of the ventricles. 2. Contrast is seen within the sagittal sinus, straight sinus, and right transverse sinus. Timoteo Boone MD Objective Remarks General: NAD, AAOx3 Chest: CTA Cardiac: Regular Abd: +BS, soft ND/NT Ext: No edema A/P Problem List: (1) Intractable headache Status: Chronic Plan: - Pt is a 26 y/o with hx of dural venous sinus thrombosis in 09/2016 - He underwent a hypercoagulable workup in [place] which included antiphospholipid ab's, KYLIE, RF, Hep B/C, SPEP, homocysteine which were unremarkable. - Pt was initially sent home on Coumadin but was then admitted to [facility] from 10/30- after presenting with increased headache and pressure worse over right scalp with associated photophobia and nausea/vomiting. 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 - His anticoagulant was changed to Eliquis 10mg BID. - Pt was found to have be heterozygous for prothrombin gene mutation on labs drawn during his last admission here. - Pt presented back to the ED at [facility] on 11/22 with complaints of worsening headache and double vision over the previous 2 days. He reports that his double vision also worsened more so with the right eye. He states that he now has issues with seeing the same object staggered separately whereas before it was just blurry. He states that if he closes his right eye that his vision improves. - Workup in [facility] ED included CT scan of the brain WO contrast showed no acute intracranial hemorrhage, previously seen hyperdensities involving the inferior sagittal sinus and right transverse sinus has significantly improved with much less hyperdense thrombus identified. There is still some residual hyperdense thrombus within the transverse sinus laterally and possibly at the junction of the sigmoid sinus. An MRA and MRV was done at that facility which revealed a negative MRA of the head, and near complete resolution of the previously demonstrated venous thrombosis involving the distal superior sagittal sinus, right transverse sinus, and proximal right sigmoid sinus. - Pt continued to complain of severe headache and his Neurologist, Dr. Koch, was contacted who requested that the pt be transferred to [facility] for further evaluation. - CTV was performed which noted no evidence of mass effect, sulcal effacement, or narrowing of the ventricles and contrast is seen within the sagittal sinus, straight sinus, and right transverse sinus. - Appreciate Neurology consultation - Pt has been started on Topomax 50mg Q12H - Pain meds PRN - Eliquis 10mg po BID - Pt to have an EEG today. - Diet as tolerated - Supportive care (2) Diplopia Status: Chronic Plan: - See above. (3) Hx of cerebral venous sinus thrombosis Status: Chronic Plan: - See above. Assessment and Plan Patient examined. Assessment and plan formulated with Jesusita Falk PA-C. I agree with the above. persistent h/a associated with double vision. says it improves with pain meds then returns...?migraine. venous sinus thrombosis seems better on venogram. PT gene mutation. cont eliquis. ?resume diamox if no better. eeg pending. await neuro reccs. Problem Qualifiers (1) Intractable headache: Qualified Code: R51 - Intractable headache, unspecified chronicity pattern, unspecified headache type Jesusita Falk Nov 24, 2016 08:48 Wilmer Delgado MD Nov 24, 2016 13:09
[2016-11-24] MEDS: TOPIRAMATE 25 MG TAB PO SCH ×2 (08:50→21:00)
[2016-11-24] MEDS: levETIRAcetam 500 MG TAB PO SCH ×2 (08:50→21:00)
[2016-11-24] MEDS: APIXABAN 5 MG TABLET PO SCH ×2 (08:50→21:00)
[2016-11-24 12:03] VITALS: BP 115/60; PULSE 93; RESP 18; TEMP 98.6; O2SAT 96
[2016-11-24 16:00] VITALS: BP 118/61; PULSE 75; RESP 18; TEMP 98.6; O2SAT 97
--- NOTE | 2016-11-24 19:31 | MG ---
cc: ALLISON SALAMANCA M.D., DALIA M.D. Lab No: Date: 11/24/16 Age: 26 Sex: M Race: REQUESTING PHYSICIAN Dr. Boo. HISTORY An EEG was obtained on this 26-year-old patient being evaluated for headaches and seizures, dural venous thrombosis. DESCRIPTION OF RECORD The patient is awake and drowsy. There are 8-10 per second alpha rhythms posteriorly. There is low amplitude beta activity frontally. The patient drowses and some theta activity is seen in the central frontal head regions bilaterally. Photic stimulation disclosed some bilateral driving response. Hyperventilation was not performed. There is some shifting in the amplitudes and some frequencies but there were no consistent lateralizing features. INTERPRETATION Probably normal awake and drowsy EEG. MD RENE Carias/BJF /6:57 PM /7:28 PM
[2016-11-24 20:30] VITALS: BP 139/71; PULSE 68; RESP 16; TEMP 97.5; O2SAT 96
[2016-11-24] MEDS: ZOLPIDEM TARTRATE 10 MG TAB PO PRN (21:00)
[2016-11-25] VITALS: BP 110/57; PULSE 77; RESP 18; TEMP 97.1; O2SAT 98
[2016-11-25] MEDS: SODIUM CHLOR 0.9% 1000 ML INJ 1,000 ML IV SCH (02:45)
[2016-11-25] MEDS: HYDROmorphone HCL PF 1 MG/ML VIAL IV PUSH PRN ×2 (02:45→06:38)
[2016-11-25 04:00] VITALS: BP 165/56; PULSE 60; RESP 20; TEMP 96.8; O2SAT 98
--- NOTE | 2016-11-25 08:17 | HHI.PR ---
Subjective Remarks pt eager for dc says h/a better. double vision comes when h/a present and "goes away after taking the pain meds" no n/v. no AMS Objective Vitals nad oriented neck supple possible mild lat nystagmus right eye heart reg lung cta abd s/nt ext no edema Vital Signs Date Time Temp Pulse Resp B/P Pulse Ox O2 Delivery O2 Flow Rate FiO2 11/25/16 04:00 96.8 60 20 165/56 98 11/25/16 00:00 97.1 77 18 110/57 98 11/24/16 20:30 97.5 68 16 139/71 96 11/24/16 16:00 98.6 75 18 118/61 97 11/24/16 14:01 18 11/24/16 12:03 98.6 93 18 115/60 96 11/24/16 11/24/16 11/25/16 15:00 23:00 07:00 Intake Total 702 ml Balance 702 ml Intake IV Total 702 ml Result Diagram: 11/23/16 1804 11/23/16 1810 Imaging Last Impressions Brain CT 11/23/16 0000 Signed Impressions: Service Date/Time: Wednesday, November 23, 2016 03:19 - CONCLUSION: 1. No evidence of mass effect, sulcal effacement, or narrowing of the ventricles. 2. Contrast is seen within the sagittal sinus, straight sinus, and right transverse sinus. Timoteo Boone MD A/P Problem List: (1) Intractable headache Status: Chronic Plan: - Pt is a 26 y/o with hx of dural venous sinus thrombosis in 09/2016 - He underwent a hypercoagulable workup in [place] which included antiphospholipid ab's, KYLIE, RF, Hep B/C, SPEP, homocysteine which were unremarkable. - Pt was initially sent home on Coumadin but was then admitted to [facility] from 10/30- after presenting with increased headache and pressure worse over right scalp with associated photophobia and nausea/vomiting. 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 - His anticoagulant was changed to Eliquis 10mg BID. - Pt was found to have be heterozygous for prothrombin gene mutation on labs drawn during his last admission here. - Pt presented back to the ED at [facility] on 11/22 with complaints of worsening headache and double vision over the previous 2 days. He reports that his double vision also worsened more so with the right eye. He states that he now has issues with seeing the same object staggered separately whereas before it was just blurry. He states that if he closes his right eye that his vision improves. - Workup in [facility] ED included CT scan of the brain WO contrast showed no acute intracranial hemorrhage, previously seen hyperdensities involving the inferior sagittal sinus and right transverse sinus has significantly improved with much less hyperdense thrombus identified. There is still some residual hyperdense thrombus within the transverse sinus laterally and possibly at the junction of the sigmoid sinus. An MRA and MRV was done at that facility which revealed a negative MRA of the head, and near complete resolution of the previously demonstrated venous thrombosis involving the distal superior sagittal sinus, right transverse sinus, and proximal right sigmoid sinus. - Pt continued to complain of severe headache and his Neurologist, Dr. Koch, was contacted who requested that the pt be transferred to [facility] for further evaluation. - CTV was performed which noted no evidence of mass effect, sulcal effacement, or narrowing of the ventricles and contrast is seen within the sagittal sinus, straight sinus, and right transverse sinus. - discussed with Dr Boo. ok with d/c....increase topomax to 75mg bid, wean off norco over next week. cont eliquis and keppra..f/u Dr Koch next week in clinic. Will send pt to [facility] ophthalmology for dilated eye exam today. called and have appt at 1pm. spoke to neuro and no LP for now as he is on anticoagulation. (2) Diplopia Status: Chronic Plan: - See above. (3) Hx of cerebral venous sinus thrombosis Status: Chronic Plan: - See above. Problem Qualifiers (1) Intractable headache: Qualified Code: R51 - Intractable headache, unspecified chronicity pattern, unspecified headache type Wilmer Delgado MD Nov 25, 2016 08:17
[2016-11-25] MEDS ORDERED: HYDR-3580 PO (08:20)
[2016-11-25] MEDS ORDERED: TOPI1TAB97 PO (08:20)
[2016-11-25] MEDS ORDERED: APIX5TAB PO (08:20)
--- NOTE | 2016-11-25 08:20 | HHI.DCPOC ---
Discharge Care Plan Diagnosis: (1) Hx of cerebral venous sinus thrombosis (2) Intractable headache (3) Diplopia Goals to Promote Your Health * To prevent worsening of your condition and complications * To maintain your health at the optimal level Directions to Meet Your Goals Take your medications as prescribed Follow your dietary instruction Follow activity as directed Keep your appointments as scheduled Take your immunizations and boosters as scheduled If your symptoms worsen call your PCP, if no PCP go to Urgent Care Center or Emergency Room Smoking is Dangerous to Your Health. Avoid second hand smoke Call the 24-hour hour crisis hotline for domestic abuse at Wilmer Delgado MD Nov 25, 2016 08:20
[2016-11-25] MEDS: levETIRAcetam 500 MG TAB PO SCH (08:31)
[2016-11-25] MEDS: TOPIRAMATE 25 MG TAB PO SCH (08:31)
[2016-11-25] MEDS: ACETAMINOPHEN/HYDROcodone 325 MG/7.5 MG TAB PO PRN (08:32)
[2016-11-25] MEDS: APIXABAN 5 MG TABLET PO SCH (08:32)
[2016-11-25 08:47] VITALS: BP 125/69; PULSE 86; RESP 20; TEMP 98.5; O2SAT 99
== END 2016-11-25 12:00 | disposition home or self-care (01) | DRG 103 ==
LOC: NEPE 02:36 → NEDA 04:55 → NEPGCP 06:11 → OBSVTOIN 11-24 12:36 → N05B 11-24 18:04
PROVIDERS: ADMIT Hospitalist; ATTEND Hospitalist
DX: R51 Headache (principal); D68.52 Prothrombin gene mutation; H53.2 Diplopia; Z86.718 Personal history of other venous thrombosis and embolism; Z79.02 Long term (current) use of antithrombotics/antiplatelets; Z72.0 Tobacco use; G47.00 Insomnia, unspecified
CPT/HCPCS: 70496; 80053; 85025; 95819; J1170; J2405; J7030; Q9967